=== PATIENT | female | born 1990 | race Caucasian/White ===

== ENCOUNTER 2022-10-14 16:05 | Outpatient (CLI) | payer OTHER, SELFPAY ==
--- NOTE | 2022-10-14 16:00 | CRLHL7_ITS ---
For Patients: As a result of the Cures Act, medical imaging exams and procedure reports are released immediately into your electronic medical record. You may view this report before your referring provider. If you have questions, please contact your health care provider. INDICATION: Dating and viability. LMP 08/20/2022. COMPARISON: None. TECHNIQUE: Real-time colmenares-scale imaging of the pelvis was performed. FINDINGS: Sonographic imaging demonstrates a single living intrauterine gestation. The embryo has a regular cardiac rate measuring 174 beats per minute. The embryo`s crown-rump length measurement of 1.4 cm corresponds to a gestational age of 7 weeks 5 days with a sonographic due date of 05/28/2023. There is a normal-appearing yolk sac. The placenta has not yet developed. There is a 1.6 x 0.7 x 1.2 cm subchorionic hemorrhage along the superior aspect of the gestational sac. The cervix appears closed. The right ovary measures 2.5 x 1.8 x 2.0 cm and the left ovary measures 1.7 x 1.4 x 1.3 cm. There is a 2.1 cm corpus luteum in the right ovary. Trace free fluid in the cul-de-sac. IMPRESSION: 1. Single living intrauterine gestation with crown rump length 1.4 cm which corresponds to a gestational age of 7 weeks 5 days with a sonographic due date of 05/28/2023. 2. The clinical gestational age by LMP is 7 weeks 6 days. 3. Small subchorionic hemorrhage. Dictated by Hattie Knight MD @ 10/14/2022 10:17:20 PM (Electronically Signed)
== END 2022-10-14 16:06 | disposition home or self-care (01) ==
LOC: US 16:07
PROVIDERS: PCP Obstetrics & Gynecology; Visit Provider Physician Assistant
DX: Z34.91 Encounter for supervision of normal pregnancy, unspecified, first trimester (principal); O20.9 Hemorrhage in early pregnancy, unspecified; Z3A.01 Less than 8 weeks gestation of pregnancy
CPT/HCPCS: 76817

== ENCOUNTER 2022-10-14 16:59 | Outpatient (CLI) | payer OTHER, SELFPAY ==
[2022-10-14 21:35] LABS: Hepatitis B Surface Antigen* Negative (Negative)
[2022-10-14 21:41] LABS: HIV 1/2/P24 Combo Screen* Negative (Negative)
[2022-10-14 22:09] LABS: Hepatitis C Virus Antibody* Negative (Negative)
[2022-10-14 22:32] LABS: Chlamydia DNA Amplified* NOT DETECTED (No Detected); GC DNA Amplified* NOT DETECTED (No Detected)
[2022-10-17 02:47] LABS: Rapid Plasma Reagin (RPR) Non Reactive (Non Reactive)
[2022-10-17 06:41] LABS: Rubella Antibody IgG 28.6 IU/mL
== END 2022-10-14 17:00 | disposition home or self-care (01) ==
PROVIDERS: PCP Obstetrics & Gynecology; Visit Provider Physician Assistant
DX: Z34.91 Encounter for supervision of normal pregnancy, unspecified, first trimester (principal); O20.9 Hemorrhage in early pregnancy, unspecified; Z3A.01 Less than 8 weeks gestation of pregnancy
CPT/HCPCS: 86592; 86703; 86762; 86787; 86803; 86850; 86900; 86901; 87086; 87340; 87491; 87591

== ENCOUNTER 2022-11-18 17:07 | Outpatient (CLI) | payer OTHER, SELFPAY ==
--- NOTE | 2022-11-18 17:00 | CRLHL7_ITS ---
For Patients: As a result of the Century Cures Act, medical imaging exams and procedure reports are released immediately into your electronic medical record. You may view this report before your referring provider. If you have questions, please contact your health care provider. CLINICAL HISTORY: First trimester screening. TECHNIQUE: Real time colmenares scale imaging of the fetus was performed using a transabdominal approach. Comparison: 10/14/2022 FINDINGS: Sonographic imaging demonstrates a single living intrauterine gestation. The fetus demonstrates a regular cardiac rate measuring 159 beats per minute. The crown rump length measurement of 6.1 cm corresponds to a gestation of 12 weeks 4 days which is concordant with the earlier dating ultrasound. A nuchal translucency measurement of 1.14 mm was obtained for screening purposes. IMPRESSION: Nuchal translucency measurement obtained for first trimester screen. Dictated by Papi Sosa MD @ 11/19/2022 7:24:12 AM (Electronically Signed)
== END 2022-11-18 17:08 | disposition home or self-care (01) ==
PROVIDERS: PCP Obstetrics & Gynecology; Visit Provider Physician Assistant
DX: Z34.91 Encounter for supervision of normal pregnancy, unspecified, first trimester (principal); Z13.79 Encounter for other screening for genetic and chromosomal anomalies; Z3A.12 12 weeks gestation of pregnancy
CPT/HCPCS: 36415; 76801; 76813; 84163; 84702

== ENCOUNTER 2023-01-15 09:27 | Outpatient (CLI) | payer OTHER, SELFPAY ==
--- NOTE | 2023-01-15 11:15 | CRLHL7_ITS ---
For Patients: As a result of the Cures Act, medical imaging exams and procedure reports are released immediately into your electronic medical record. You may view this report before your referring provider. If you have questions, please contact your health care provider. INDICATION: Evaluate anatomy. COMPARISON: 11.18.22 TECHNIQUE: Real time colmenares scale imaging of the fetus was performed as well as color Doppler analysis of the umbilical vessels. FINDINGS: Sonographic imaging demonstrates a single living intrauterine gestation. Fetus demonstrates a regular cardiac rate of 145 beats per minute. Fetus has a breech position. The placenta lies posterior without evidence of placenta previa. The edge of the placenta is located 3.1 cm from the internal cervical os. Amniotic fluid volume appears normal. Single deepest vertical pocket: 3.4 cm. The cervix is closed and measures 3.2 cm in length. The composite ultrasound gestational age is calculated at 20 weeks 4 days with an estimated sonographic due date of 05/31/2023. The estimated weight is 367 grams which lies at the 21st %. The following biometric measurements were obtained: Biparietal diameter: 4.7 cm/20 weeks 0 days 12th% Head circumference: 18.0 cm/20 weeks 3 days 14th% Abdominal circumference: 15.6 cm/20 weeks 6 days 32nd% Femur length: 3.4 cm/20 weeks 4 days 22nd% The HC/AC ratio measures: 1.15 range (1.07-1.25) On anatomic survey, there is a normal appearance of the cerebral ventricles, cavum septi pellucidi, cisterna magna and cerebellum. The nose, lips, and facial profile appear normal. The cervical, thoracic and lumbar spine are well visualized and appear normal. There is a normal four-chamber heart view and the left and right ventricular outflow tracts appear normal. The diaphragm and stomach appear normal. The kidneys and bladder also appear normal. There is a normal three-vessel cord and cord insertion site. The four extremities appear normal. IMPRESSION: Normal OB ultrasound exam with concordance of clinical and sonographic dating. No intrinsic abnormalities noted on anatomic survey. Dictated by Papi Sosa MD @ 01/16/2023 10:58:46 AM (Electronically Signed)
== END 2023-01-15 09:28 | disposition home or self-care (01) ==
PROVIDERS: Visit Provider Physician Assistant
DX: Z34.92 Encounter for supervision of normal pregnancy, unspecified, second trimester (principal); Z3A.21 21 weeks gestation of pregnancy
CPT/HCPCS: 76805

== ENCOUNTER 2023-03-03 16:45 | Outpatient (CLI) | payer OTHER, SELFPAY | END 2023-03-03 16:46 | disposition home or self-care (01) | LOC: NFLDREF 03-08 11:44 | PROVIDERS: PCP Obstetrics & Gynecology; Referring Provider Obstetrics & Gynecology; Visit Provider Physician Assistant | DX: Z34.92 Encounter for supervision of normal pregnancy, unspecified, second trimester (principal) | CPT/HCPCS: 86592 ==

== ENCOUNTER 2023-04-27 13:15 | Outpatient (CLI) | payer OTHER, SELFPAY | END 2023-04-27 13:16 | disposition home or self-care (01) | LOC: NFLDREF 04-28 16:11 | PROVIDERS: PCP Obstetrics & Gynecology; Referring Provider Obstetrics & Gynecology; Visit Provider Obstetrics & Gynecology | DX: Z34.93 Encounter for supervision of normal pregnancy, unspecified, third trimester (principal); Z3A.35 35 weeks gestation of pregnancy | CPT/HCPCS: 87081; 87653 ==

== ENCOUNTER 2023-05-20 07:03 | Inpatient (IN) | payer OTHER, SELFPAY ==
[2023-05-20] VITALS (44 sets, daily range): BP systolic 92–127; BP diastolic 51–78; PULSE 65–93; RESP 16; TEMP 36.4–36.9; O2SAT 92–100; BMI 23.6
--- NOTE | 2023-05-20 08:01 | P.LDBA_ITS ---
Subjective History of Present Illness Time Seen by Provider: 08:30 Date Seen: 05/20/23 Narrative: HPI: Colleen is a 32-year-old 3 para 2001 at 39 and 0/7weeks gestation being admitted for elective induction of labor. Her admission history and physical was completed by Thania Roger MD on 05/08/2023. Her course has been uncomplicated. Her membranes are not ruptured. She reports no painful contractions. The baby has been moving normally. Verbal consent obtained to perform artificial rupture of membranes. Pitocin is currently at 1 milliunit/minute. OB PROBLEM LIST: Spouse: Lennox. Daughter: Jaron. Son: Eddie. Baby: Aubrey Gender 1. History of IUGR and oligohydramnios in 1st * Planning USN for EFW 32-36 weeks (order placed 03/03/23) * 04/07/2023: Vertex, normal fluid. BPD 53%, HC 42%, AC 76%, FL 8%. EFW 46%. 4#10oz. 2106 g. 2. History of anxiety * Declined restarting sertraline on 11/21/2022. 3. History of genital herpes * At 1st OB on Valtrex a 1000 mg daily 4. Elevated 1 hour GTT, 171 * 3 hour GTT:F 83, 1hr 155, 2hr 124, 3hr 105. All Normal Flu shot:10/14/22 COVID: Vaccinated Tdap: 03/18/23 OBJECTIVE: GENERAL: Pleasant, , well groomed woman in no acute distress. VITAL SIGNS: Per electronic medical record: They are normal. HEART: Regular rate and rhythm without gallop, rub or murmur. CHEST: Clear to auscultation bilaterally. ABDOMEN: Gravid, nontender. EFM: Baseline 140s, accelerations present, decelerations absent, moderate variability, reactive. Category 1 TOCO: Sporadic contractions. SVE: 3 cm/80 %/0/posterior/soft. Dumont score 9. A ROM: Clear fluid EXTREMITIES: No edema, cyanosis, clubbing or pain. ASSESSMENT: 32-year-old 3 para 2001 at 39 and 0/7 weeks gestation admitted for elective induction of labor. PLAN: 1. Pitocin per induction protocol 2. AROM performed. 3. GBS negative 4. Planning epidural for labor analgesia 5. Rh positive OB Exam Physical Exam Vital signs: Pulse BP Pulse Ox 79 107/69 100 05/20/23 07:26 05/20/23 07:26 05/20/23 07:23
[2023-05-20] MEDS: LACTATED RINGERS 1000 ML 1,000 ML 125 ML IV ×3 (08:09→19:35)
[2023-05-20] MEDS: OXYTOCIN 30 unit/500 ML in NS 30 UNIT/500 ML BAG IVPB (08:12)
--- NOTE | 2023-05-20 16:35 | P.OBPN_ITS ---
Subjective Time Seen by Provider: 16:00 Date Seen: 05/20/23 Narrative: HPI: Patient is feeling mildly crampy but has not noticed many painful contractions. Pitocin: 5 milliunits/minute. Verbal consent obtained to place intrauterine pressure catheter. Objective Exam: General: Pleasant, gravid, comfortable woman in no acute distress. Vital signs: Included on the monitor tracing. All vital signs are no rmal. External monitor: Baseline: 130s, moderate variability, accelerations: Present, decelerations: 1 variable deceleration to the 90s lasting 20 seconds at 16:28. Category 2. IUPC: Placed w/o difficulty. Multiple heart rate accelerations to the 150's with placement of the IUPC. Each contraction is <20 Montrose units. 60 Montrose units/10minutes. SVE: 4/90%/0 to +1/mid/soft. Extremities: no pain or edema. Vital Signs: Last Vital Signs Temp 98.4 F 05/20/23 15:27 Pulse 88 05/20/23 15:27 Resp 16 05/20/23 15:27 BP 111/57 L 05/20/23 15:27 Pulse Ox 100 05/20/23 07:23 Contractions Monitor mode: Internal Contraction pattern: Irregular Contraction intensity: Mild Pitocin Rate (mU/min): 6 Assessment Assessment: early labor Station: 0 Amniotic Membrane Status: AROM Status: Category ll Heart Rate Baseline: 130 Group Home Variability: Moderate (6-25) Monitor Accelerations: Present Monitor Decelerations: Early Tracing Comments: 1 variable deceleration, 2 early decelerations between 4-4:30pm. Labor Progress: Slow progress: prodromal labor. Maternal Status: Stable Plan Plan: 1. Continue pitocin per induction protocol. 2. The patient would like to have an epidural for labor analgesia..
[2023-05-20] MEDS: LACTATED RINGERS 1000 ML 1,000 ML 1125 ML IV (18:29)
[2023-05-20] MEDS: ROPIVACAINE 0.2% 100 ml 100 ML 12 MG EPIDURAL (19:06)
--- NOTE | 2023-05-20 19:21 | PM.ANBPRC ---
[facility] Medical History (Updated 05/13/23 @ 10:47 by Thania Jose MD) Tear of acetabular labrum ?S73.199A - Other sprain of unspecified hip, initial encounter (ICD-10) Normal spontaneous vaginal delivery ?O80 - Encounter for full-term uncomplicated delivery (ICD-10) Genital herpes simplex ?A60.00 - Herpesviral infection of urogenital system, unspecified (ICD-10) Surgical History (Updated 10/14/22 @ 18:38 by Niecy Reynoso PA-C) History of wisdom tooth extraction ?K08.409 - Partial loss of teeth, unspecified cause, unspecified class (ICD-10) Family History (Updated 10/13/22 @ 13:58 by Niecy Reynoso PA-C) Grandmother Diabetes Social History (Updated 10/13/22 @ 13:58 by Niecy Reynoso PA-C) 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 What is your current living situation?: I presently have a place to live Problems where you live: no known problems In the past 12 months, utilities in danger of being shut off: no In the past 12 mos, have been you worried that your food would run out before you had money to buy more?: never true In the past 12 mos, the food you bought just didn't last and you didn't have money to buy more?: never true Smoking Status: Never smoker How often does anyone, including family, friends and others, physically hurt you: never How often does anyone, including family, friends and others, insult or talk down to you: never How often does anyone, including family, friends and others, threaten you with harm: never How often does anyone, including family, friends and others, scream or curse at you: never Little interest or pleasure in doing things: not at all Feeling down, depressed, or hopeless: not at all Meds Home Medications and Allergies Home Medications Medication Instructions Recorded Confirmed Type docosahexaenoic acid 200 mg 1 mg PO DAILY 10/14/22 05/20/23 History capsule ( DHA) famotidine 20 mg tablet (Pepcid) 20 mg PO QDAY 12/16/22 05/20/23 History Allergies Allergy/AdvReac Type Severity Reaction Status Date / Time banana Allergy Severe Abdominal Verified 05/13/23 10:42 Pain tree nut Allergy Mild Verified 05/13/23 10:42 adhesive tape Allergy Verified 05/13/23 10:42 avocado Allergy Verified 05/13/23 10:42 Results Vital Signs Vital Signs: Last Vital Signs Temp 98.1 F 05/20/23 18:23 Pulse 70 05/20/23 19:17 Resp 16 05/20/23 18:23 BP 118/63 05/20/23 19:17 Pulse Ox 92 05/20/23 19:01 Weight: 63.412 kg Height: 163.83 cm Anesthesia Procedures Epidural Insertion Patient Location: OB Start Time: 18:30 Stop Time: 19:25 Start Date: 05/20/23 Stop Date: 05/20/23 Reason for Block: procedure for pain Patient Position: sitting Performed By: Abel Vallecillo Preanesthetic Checklist: IV checked, risks and benefits discussed, surgical consent, monitors and equipment checked, pre-op evaluation, timeout performed and anesthesia consent Prep: chlorhexidine gluconate Monitoring: blood pressure monitoring, continuous pulse oximetry and heart rate Approach: midline Vertebral Space: lumbar (1-5) Epidural Technique: LAVON saline Needle Type: Tuohy needle Injection Technique: continuous catheter Needle gauge: 17 Needle Length (cm): 10 cm Needle Insertion Depth (cm): 6 Catheter Gauge: 19 Catheter Type: multi-orifice Catheter at skin depth (cm): 12 Test Dose Result: negative and lidocaine 1.5% with epinephrine 1 to 200,000
[2023-05-20] MEDS: TRANEXAMIC ACID 100 MG/ML INJ 1000 MG IV (22:33)
--- NOTE | 2023-05-20 23:20 | W.PM.VAGDEL1 ---
Procedure Delivery date: 05/20/23 Procedure Done: Global Procedure Details: Colleen is a 32 year-old G 3P 2002 now 3 admitted on 05/20/2023 at 7:00 a.m. at 39 Weeks, 0 Days gestation for an elective induction of labor. AROM occurred at 8:59 a.m. on 05/20/2023 with clear fluid. Labor Analgesia: Epidural Pitocin: Yes Labor onset: 05/20/2023 at 6:12 p.m.. Complete: 05/20/2023 at 10:25 p.m.. Pushin05/20/2023 at 10:33 p.m.. heart tones during second stage were: Category 2 with intermittent early or variable decelerations with contractions with immediate return to baseline and moderate variability.. At 10:58 p.m. a viable female infant delivered in vertex direct OA presentation over first-degree left periurethral laceration via normal spontaneous vaginal delivery. The was placed on maternal abdomen. Cord was clamped and cut after a 60 second delay. Nose and mouth were bulb suctioned. weight pending. 8 at 1 minute and 9 at 5 minutes. Shoulder dystocia: No. Nuchal cord: No Placenta delivered spontaneously and complete at 11:01 p.m. with a 3 vessel cord. Laceration(s): First-degree left periurethral. Repaired using 4-0 Vicryl suture in a running manner. Blood loss: 75 mL. Blood loss measurement type: Quantitative Sponge and needles counts are correct. Specimen: None Mother and infant were stable after delivery. Infant's name: ? Navy Padilla ? The patient is planning on breast feeding. The IUPC and gage catheter were removed when the patient began pushing. The patient received 1 g IV TXA during the 2nd stage to prevent hemorrhage as the patient had a maximum Pitocin of 22 milliunits/minute. Events: Labor Induction Intrapartal Events: Labor Induction Delivery monitor: external FHT and internal uterine Route of delivery: Episiotomy description: None Laceration description: Periurethral - 1st Degree Delivery repair: Vicryl Estimated blood loss (mL): 75 Anesthesia type: Epidural Disposition: floor Gender: Female presentation: vertex Placental Delivery Description: Spontaneous Cord Description: 3 Vessels
[2023-05-21] VITALS (13 sets, daily range): BP systolic 83–115; BP diastolic 48–72; PULSE 49–77; RESP 16; TEMP 36.4–36.6; O2SAT 97–98
[2023-05-21] MEDS: ONDANSETRON 2 MG/ML inj 4 MG IV (02:26)
[2023-05-21] MEDS: IBUPROFEN 600 MG TABLET PO ×3 (06:30→19:41)
[2023-05-21 07:08] LABS: Hemoglobin* 11.5 gm/dL (12.0-16.0)
--- NOTE | 2023-05-21 07:38 | PM.OBPNVD1 ---
OB - PN:Subj Subjective Time Seen by Provider: 07:38 Date Seen: 05/21/23 Interval history: Colleen is a 32 y.o. who was admitted to [facility] for elective [facility].? She had an uncomplicated NVD.? ? ? Narrative: The patient feels well.? The pain is well controlled with current medications.? She has no new complaints.? She is breast feeding and reports baby has not been latching well.? the patient has done well.? Vitals have been stable.? She has remained afebrile.? Has a good appetite, is tolerating a general diet.? She is voiding without difficulty.? She is passing gas and has not had a bowel movement.? She is ambulating and did have dizziness post delivery.? This has resolved and she denies any at this time. Has Small amount of rubra lochia.? OB - PN: Obj Exam Physical Exam: Vital signs: Temp Pulse Resp BP Pulse Ox O2 Del Method 98 F 67 16 90/56 L 92 Room Air 05/21/23 04:04 05/21/23 04:04 05/21/23 04:04 05/21/23 04:04 05/20/23 19:01 05/21/23 04:04 Narrative: GENERAL APPEARANCE:? normal affect, alert, no distress? MOOD:? appropriate? HEENT: normocephalic, neck supple, full ROM? CHEST:? Symmetrical chest wall movement.? Normal respiratory effort.? Clear to auscultation ? HEART:? regular rate and rhythm? ABDOMEN:? soft, non-tender. Uterine fundus is firm, at Umbilicus, Midline and is appropriate for the stage of recovery.? Bowel sounds present.? PERINEUM:? mild edema and bruising of the perineum, there is a 1st degree laceration that is healing well.? Labial varicosities also present. EXTREMITIES:? normal and no edema? OB - PN: Obj Data Labs Labs: Laboratory Results - last 24 hr 05/21/23 07:00 Hgb 11.5 L OB - PN: A/P Delivery Plan day: 1 Plan: routine care Comments: G 3 P 3 status post uncomplicated NVD? ?? 1.? Continue route PP cares? 2.? .? May see if desired? 3.? Anticipate discharge home tomorrow?
[2023-05-21] MEDS: ACETAMINOPHEN 500 MG TABLET 1000 MG PO (22:27)
[2023-05-22] MEDS: IBUPROFEN 600 MG TABLET PO (05:30)
[2023-05-22 06:00] VITALS: BP 103/69; PULSE 53; RESP 16; TEMP 36.3; O2SAT 98
--- NOTE | 2023-05-22 07:51 | P.DS_ITS ---
DS: Providers Provider Date Seen: 05/22/23 Date of admission: 05/20/23 07:03 Primary care physician: Thania Jose MD Admitting Clinician: Thania Jose MD Attending Physician on discharge: URIEL Mckinley: Diagnosis Discharge Diagnosis (1) care and examination immediately after delivery: Status: Acute (2) Lactating mother: Status: Acute Exam Narrative: Exam Narrative: GENERAL APPEARANCE:? normal affect, alert, no distress MOOD:? appropriate CHEST:? clear to auscultation HEART:? regular rate and rhythm ABDOMEN:? soft, non-tender the uterine fundus is at Umbilicus, Midline and is appropriate for the stage of recovery. PERINEUM:? mild edema of the perineum, there is a periurethral laceration that is healing well. EXTREMITIES:? normal and no edema Const: Vital Signs, click to edit/add: Vital Signs - 24 hr 05/21/23 08:14 05/21/23 12:41 05/21/23 17:58 Temperature 97.6 F 97.7 F 97.8 F Pulse Rate [Blood Pressure Cuff] 58 L 49 L 56 L Respiratory Rate 16 16 16 Blood Pressure [Ri ght Arm] 108/72 101/62 107/60 Pulse Oximetry 98 97 98 Oxygen Delivery Me thod Room Air Room Air 05/21/23 19:45 05/22/23 06:00 Temperature 97.8 F 97.4 F L Pulse Rate [Blood Pressure Cuff] 54 L 53 L Respiratory Rate 16 16 Blood Pressure [Ri ght Arm] 115/68 103/69 Pulse Oximetry 98 98 Oxygen Delivery Me thod Room Air Room Air Documenting provider has reviewed patient's vital signs: yes OB - DS: Summary Hospital Course Hospital Course: Colleen is a 32 year old G 3 P 3 at 39 0/7 weeks gestation that was admitted to the Center on 05/20/23 for elective induction of labor. She had an uncomplicated vaginal delivery. She delivered a viable female . The patient feels well. ?The pain is well controlled with current medications. ?She has no new complaints. ?She is breast feeding and reports things are going ok. She desires to see before discharge.? the patient has done well.? Vitals have been stable.? She has remained afebrile.? Has a good appetite, is tolerating a general diet. ?She is voiding without difficulty.? She is passing gas and has not had a bowel movement.? She is ambulating and denies any dizziness.? Has small amount of rubra lochia. Peripartum Data Infant delivery method: Vaginal Laceration description: Periurethral - 1st Degree complications: none [place] Infant Gender: Female Discharge Plan: Home Status at Discharge Functional status at discharge: independent ambulation Overall status at discharge: patient is progressing back to baseline Time Spent with Patient Time attestation: Total time spent providing and/or coordinating discharge services: Discharge Plan Discharge Disposition: Home, Self-Care Date of Admission: 05/20/23 07:03 Attending Provider on Discharge: Vivien Martinez Primary Care Provider: Thania Jose Condition: Stable Anticipated Discharge Date/Time: 05/22/23 12:00 Discharge Medications: New docusate sodium 100 mg Capsule 100 mg PO BID PRNQty: 100 0RF ibuprofen 600 mg Tablet 600 mg PO Q6H PRNQty: 30 0RF Continued DHA 200 mg capsule 1 mg PO DAILY famotidine [Pepcid] 20 mg tablet 20 mg PO QDAY valacyclovir 1 gram tablet 1,000 mg PO QDAY Qty: 90 1RF Rx Instructions: 1,000 mg orally every day; or 1 gram per day. Discharge Orders: Discharge Order (Routine); Ordered 05/22/23 Ordered By: Vivien Martinez Patient Education: OB Vaginal/Breast Feeding, OB Over the Counter Medication Information Additional Instructions: ACTIVITY RESTRICTIONS: * Nothing vaginally for 6 weeks: no tampons/intercourse * Off of work/school for a minimum of 6 weeks [facility]LLOW-UP APPOINTMENTS [facility]: 1. Optional 2 week visit: Screen for anxiety/depression, discuss contraceptive options, answer questions regarding care. 2. 6 week visit for physical exam. The patient also desires Mirena IUD insertion at this visit. consultation services are available to all mothers and babies for the first year after delivery.? To make an appointment, please call [phone]. Activity Level: Activity as Tolerated Discharge Diet: Regular Follow Up Appointments: [facility] [Provider Group] Thania Jose MD [Primary Care Provider] - Forms: [employer] Info Instructions
[2023-05-22 08:30] VITALS: BP 102/68; PULSE 53; RESP 16; TEMP 36.9
== END 2023-05-22 13:05 | disposition home or self-care (01) | DRG 807 ==
PROVIDERS: Admitting Provider Obstetrics & Gynecology; PCP Obstetrics & Gynecology; Visit Provider Obstetrics & Gynecology
DX: O70.0 First degree perineal laceration during delivery (principal); Z37.0 Single live birth; Z3A.39 39 weeks gestation of pregnancy
CPT/HCPCS: 01967; 36415; 85018; A9270; J2371; J2405; J2795; J7120; S0020

== ENCOUNTER 2023-05-31 19:24 | Emergency (ER) | payer OTHER, SELFPAY ==
[2023-05-31 19:33] VITALS: BP 119/87; PULSE 60; RESP 16; O2SAT 99; BMI 21.8
--- NOTE | 2023-05-31 19:48 | CRLHL7_ITS ---
For Patients: As a result of the Century Cures Act, medical imaging exams and procedure reports are released immediately into your electronic medical record. You may view this report before your referring provider. If you have questions, please contact your health care provider. INDICATION: Vaginal bleeding 11 days post TECHNIQUE: Ultrasound pelvis transabdominal. Real-time colmenares scale sonographic images with Doppler imaging of the ovaries were obtained. COMPARISON: None FINDINGS: Uterus: 10.6 x 7 x 9.3 cm. The uterine cavity is distended by heterogeneous hypoechoic material with a cavity measuring 2.8 cm in diameter. Normal echotexture of the myometrium noted with no masses are seen. Endometrium: Not well visualized. Right ovary: 3 x 2.7 x 1.6 cm. The right ovary is normal in appearance and echotexture. Unremarkable color Doppler imaging noted in the right ovary. Left ovary: 4 x 2.5 x 1.5 cm. The left ovary is normal in appearance and echotexture. Doppler examination of the left ovary is limited. Cul-de-sac: No significant ascites noted. IMPRESSION: 1. The uterine cavity is distended by heterogeneous hypoechoic material with a cavity measuring 2.8 cm in diameter. This may be due to blood products. Follow-up imaging is recommended to document resolution and to exclude retained products of conception. Dictated by Dany Burch MD @ 05/31/2023 10:48:57 PM Dictated by: Dany Burch MD @ 05/31/2023 22:49:01 (Electronically Signed)
[2023-05-31 19:50] VITALS: BP 113/75; PULSE 57; RESP 16; O2SAT 97
[2023-05-31] MEDS: 0.9 % SODIUM CHLORIDE 1000 ml 1,000 ML IV (19:53)
[2023-05-31 20:00] LABS: Basophils Absolute Auto 0.02 K/uL (0.00-0.30); Basophils Percent Auto 0.2 % (0.0-3.0); Eosinophils Absolute Auto 0.11 K/uL (0.00-0.50); Eosinophils Percent Auto 1.3 % (0.0-7.0); Hemoglobin* 14.4 gm/dL (12.0-16.0); Immature Granulocytes Abs Auto 0.01 K/uL (0.00-0.30); Immature Granulocytes Pct Auto 0.1 %; Lymphocytes Absolute Auto 2.91 K/uL (0.90-2.90); Lymphocytes Percent Auto 34.4 % (20-44); Mean Corpuscular HGB Conc 34 gm/dL (32-36); Mean Corpuscular Hemoglobin 31 pg (26-34); Mean Corpuscular Volume 94 fL (80-100); Monocytes Percent Auto 6.5 % (0.0-11.0); Neutrophils Absolute Auto 4.86 K/uL (1.7-7.0); Neutrophils Percent Auto 57.5 % (42.0-72.0); Platelet Count* 321 K/uL (140-440); RDW Coefficient of Variation % 12.1 % (11.5-15.5); Red Blood Count 4.58 m/uL (4.00-5.20); White Blood Count* 8.46 K/uL (4.50-11.00)
[2023-05-31 20:02] LABS: Slide Review Reflex No
--- NOTE | 2023-05-31 20:14 | ED_ITS ---
HPI - General Adult General Date Seen: 05/31/23 <Timbo Victor MD - Last Filed: 06/02/23 09:22> Chief complaint: Post OB/Post- Complication <Timbo Victor MD - Last Filed: 06/02/23 09:22> Stated complaint: 11 days , passing clots and bleeding <Timbo Victor MD - Last Filed: 06/02/23 09:22> Time Seen by Provider: 05/31/23 19:26 <Timbo Victor MD - Last Filed: 06/02/23 09:22> Source: patient <Timbo Victor MD - Last Filed: 06/02/23 09:22> Mode of arrival: ambulatory <Timbo Victor MD - Last Filed: 06/02/23 09:22> Limitations: no limitations <Timbo Victor MD - Last Filed: 06/02/23 09:22> History of Present Illness HPI narrative: Patient is a very nice 32-year-old we delivered a vaginal delivery on May 20. She was doing well with normal , when noted increased bleeding today, and was having which she thinks is more is old blood, and soaking through 4 pads. Pretty well stop bleeding altogether, when this occurred. She told her mother was 1 over obese here that she was feeling a little bit on well in her mother worried about endometritis or possible retained products, they called the on-call OBGYN, and she came in here. Does not feel syncopal, dizzy or any other issues she did not have any bleeding retained products with any of her previous children, she does note her Rh status is but she did not receive RhoGAM. She notes that there is no history of nose bleeds or other bleeding dyscrasias, she has never been anemic, and she only required 1 stitches far she knows. <Timbo Victor MD - Last Filed: 06/02/23 09:22> Treatments prior to arrival: none <Timbo Victor MD - Last Filed: 06/02/23 09:22> Related Data Home medications: Home Medications Medication Instructions Recorded Confirmed docosahexaenoic acid 200 mg 1 mg PO DAILY 10/14/22 05/20/23 capsule ( DHA) famotidine 20 mg tablet (Pepcid) 20 mg PO QDAY 12/16/22 05/20/23 Previous Rx's Medication Instructions Recorded valacyclovir 1 gram tablet 1,000 mg PO QDAY #90 tabs 01/05/23 docusate sodium 100 mg capsule 100 mg PO BID PRN #100 caps 05/20/23 ibuprofen 600 mg tablet 600 mg PO Q6H PRN #30 tabs 05/20/23 <Timbo Victor MD - Last Filed: 06/02/23 09:22> Allergies/adverse reactions: Allergies Allergy/AdvReac Type Severity Reaction Status Date / Time banana Allergy Severe Abdominal Verified 06/01/23 08:08 Pain tree nut Allergy Mild Verified 06/01/23 08:08 adhesive tape Allergy Verified 06/01/23 08:08 avocado Allergy Verified 06/01/23 08:08 <Timbo Victor MD - Last Filed: 06/02/23 09:22> Review of Systems Status of ROS: Reports: 10 or more systems reviewed and unremarkable except as noted in History and below <Timbo Victor MD - Last Filed: 06/02/23 09:22> [facility] Medical History: Medical History Normal spontaneous vaginal delivery (05/20/23) ?O80 - Encounter for full-term uncomplicated delivery (ICD-10) Tear of acetabular labrum ?S73.199A - Other sprain of unspecified hip, initial encounter (ICD-10) Genital herpes simplex ?A60.00 - Herpesviral infection of urogenital system, unspecified (ICD-10) <Timbo Victor MD - Last Filed: 06/02/23 09:22> Surgical History: Surgical History History of wisdom tooth extraction ?K08.409 - Partial loss of teeth, unspecified cause, unspecified class (ICD- 10) <Timbo Victor MD - Last Filed: 06/02/23 09:22> Family History: Family History Grandmother Diabetes <Timbo Victor MD - Last Filed: 06/02/23 09:22> Social History: 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 What is your current living situation?: I presently have a place to live Problems where you live: no known problems In the past 12 months, utilities in danger of being shut off: no In the past 12 mos, have been you worried that your food would run out before you had money to buy more?: never true In the past 12 mos, the food you bought just didn't last and you didn't have money to buy more?: never true Smoking Status: Never smoker How often do you have a drink containing alcohol: never AUDIT-C Alcohol total score: 0 Non-prescribed substance use: denies use Caffeine: No How often does anyone, including family, friends and others, physically hurt you : never How often does anyone, including family, friends and others, insult or talk down to you: never How often does anyone, including family, friends and others, threaten you with harm: never How often does anyone, including family, friends and others, scream or curse at you: never Little interest or pleasure in doing things: not at all Feeling down, depressed, or hopeless: not at all Are you using contraception or practicing any form of control: No <Timbo Victor MD - Last Filed: 06/02/23 09:22> Exam Narrative: Exam Narrative: Patient is a very nice 32-year-old female, seen in room 7, she is here with her partner in her young baby. Pupils are equal round reactive to light, there is no scleral icterus redness, TMs are normal chest is clear heart sounds are normal, her abdomen is soft her uterus is approximately 3 finger widths above her symphysis, and is not tender, and is not feel boggy, the rest of her abdomen is soft. Skin real petechiae rashes. I discussed with her we will order an ultrasound, I will do an examination to see the bleeding, and we will do a hemoglobin and blood screen, will give her some fluids, and I will discuss this with the OBGYN on-call. I did discuss this with Dr. Casas, she asked to keep person updated on the ultrasound. Bimanual exam is done with the speculum, with nurse alley present. Cervix was seen posterior, old blood, not a lot was seen in the vault. Approximately maybe 5 mL, this is cleaned off with 1 large Q-tip, no lacerations are noted <Timbo Victor MD - Last Filed: 06/02/23 09:22> Const: Vital Signs, click to edit/add: Vital Signs - 24 hr 05/31/23 19:33 05/31/23 19:50 05/31/23 21:51 Pulse Rate [Left P ulse Oximeter] 60 57 L 58 L Respiratory Rate 16 16 20 Blood Pressure [Ri ght Upper Arm] 119/87 113/75 109/71 Pulse Oximetry 99 97 95 Oxygen Delivery Me thod Room Air Room Air Room Air <Timbo Victor MD - Last Filed: 06/02/23 09:22> Vital Signs, click to edit/add: Vital Signs - 24 hr 05/31/23 19:33 05/31/23 19:50 05/31/23 21:51 Pulse Rate [Left P ulse Oximeter] 60 57 L 58 L Respiratory Rate 16 16 20 Blood Pressure [Ri ght Upper Arm] 119/87 113/75 109/71 Pulse Oximetry 99 97 95 Oxygen Delivery Me thod Room Air Room Air Room Air <Prabhjot Graff MD - Last Filed: 05/31/23 23:38> Documenting provider has reviewed patient's vital signs: yes <Timbo Victor MD - Last Filed: 06/02/23 09:22> Course Vital Signs Vital signs: Initial Vital Signs Temperature Source Temporal Artery Scan 05/31/23 19:33 Pulse Rate 60 05/31/23 19:33 Respiratory Rate 16 05/31/23 19:33 Blood Pressure 119/87 05/31/23 19:33 Blood Pressure Mean 97 05/31/23 19:33 Blood Pressure Position Sitting 05/31/23 19:33 Pulse Oximetry 99 05/31/23 19:33 Oxygen Delivery Method Room Air 05/31/23 19:33 Vital Signs Pulse Rate 60 05/31/23 19:33 Respiratory Rate 16 05/31/23 19:33 Blood Pressure 119/87 05/31/23 19:33 Pulse Oximetry 99 05/31/23 19:33 Oxygen Delivery Method Room Air 05/31/23 19:33 Temperature 98.2 F 05/31/23 23:49 Pulse Rate 65 05/31/23 23:49 Respiratory Rate 20 05/31/23 23:49 Blood Pressure 112/74 05/31/23 23:49 Pulse Oximetry 95 05/31/23 23:49 Oxygen Delivery Method Room Air 05/31/23 23:49 <Timbo Victor MD - Last Filed: 06/02/23 09:22> Initial Vital Signs Temperature Source Temporal Artery Scan 05/31/23 19:33 Pulse Rate 60 05/31/23 19:33 Respiratory Rate 16 05/31/23 19:33 Blood Pressure 119/87 05/31/23 19:33 Blood Pressure Mean 97 05/31/23 19:33 Blood Pressure Position Sitting 05/31/23 19:33 Pulse Oximetry 99 05/31/23 19:33 Oxygen Delivery Method Room Air 05/31/23 19:33 Vital Signs Pulse Rate 60 05/31/23 19:33 Respiratory Rate 16 05/31/23 19:33 Blood Pressure 119/87 05/31/23 19:33 Pulse Oximetry 99 05/31/23 19:33 Oxygen Delivery Method Room Air 05/31/23 19:33 Temperature 98.2 F 05/31/23 23:49 Pulse Rate 65 05/31/23 23:49 Respiratory Rate 20 05/31/23 23:49 Blood Pressure 112/74 05/31/23 23:49 Pulse Oximetry 95 05/31/23 23:49 Oxygen Delivery Method Room Air 05/31/23 23:49 <Prabhjot Graff MD - Last Filed: 05/31/23 23:38> Medical Decision Making MDM Narrative Medical decision making narrative: Differential diagnosis here consider retained products, bleeding fibroid, infection, such as endometritis, inherent bleeding disorder, trauma, or other possible causes <Timbo Victor MD - Last Filed: 06/02/23 09:22> Differential diagnosis here consider retained products, bleeding fibroid, infection, such as endometritis, inherent bleeding disorder, trauma, or other possible causes This patient seemed to have improvement in her bleeding but ultrasound results do show evidence of a 2.8 cm heterogeneous hypoechoic fluid in the uterus probably related to a blood clot but possibly could be some products of conception. I did speak with the OB physician conservation scientist to update regarding these findings on ultrasound. The patient will likely need a D&C sometime this week. The patient states that she lives an hour and half away and was hoping to attend to these matters without having to return home. Her mother is 1 of the OB physicians so she plans to stay with her tonight and will return in the morning as arrangements are made for D&C at 9:00 a.m. in the morning. <Prabhjot Graff MD - Last Filed: 05/31/23 23:38> Lab Data Labs: Lab Results 05/31/23 Range/Units 19:50 WBC 8.46 (4.50-11.00) K/uL RBC 4.58 (4.00-5.20) m/uL Hgb 14.4 (12.0-16.0) gm/dL Hct 43.0 (33.0-51.0) % MCV 94 (80-100) fL MCH 31 (26-34) pg MCHC 34 (32-36) gm/dL RDW Coeff of Brooke 12.1 (11.5-15.5) % Plt Count 321 (140-440) K/uL Neut % (Auto) 57.5 (42.0-72.0) % Lymph % (Auto) 34.4 (20-44) % Grand % (Auto) 6.5 (0.0-11.0) % Eos % (Auto) 1.3 (0.0-7.0) % Baso % (Auto) 0.2 (0.0-3.0) % Neut # (Auto) 4.86 (1.7-7.0) K/uL Lymph # (Auto) 2.91 H (0.90-2.90) K/uL Grand # (Auto) 0.50 (0.00-0.90) K/UL Eos # (Auto) 0.11 (0.00-0.50) K/uL Baso # (Auto) 0.02 (0.00-0.30) K/uL Abs Immat Gran (auto) 0.01 (0.00-0.30) K/uL Imm/Tot Granulo (auto) 0.1 % INR 0.84 L (0.91-1.10) APTT 27 (23-33) Seconds Blood Type A Positive Antibody Screen NEGATIVE <Timbo Victor MD - Last Filed: 06/02/23 09:22> Lab Results 05/31/23 Range/Units 19:50 WBC 8.46 (4.50-11.00) K/uL RBC 4.58 (4.00-5.20) m/uL Hgb 14.4 (12.0-16.0) gm/dL Hct 43.0 (33.0-51.0) % MCV 94 (80-100) fL MCH 31 (26-34) pg MCHC 34 (32-36) gm/dL RDW Coeff of Brooke 12.1 (11.5-15.5) % Plt Count 321 (140-440) K/uL Neut % (Auto) 57.5 (42.0-72.0) % Lymph % (Auto) 34.4 (20-44) % Grand % (Auto) 6.5 (0.0-11.0) % Eos % (Auto) 1.3 (0.0-7.0) % Baso % (Auto) 0.2 (0.0-3.0) % Neut # (Auto) 4.86 (1.7-7.0) K/uL Lymph # (Auto) 2.91 H (0.90-2.90) K/uL Grand # (Auto) 0.50 (0.00-0.90) K/UL Eos # (Auto) 0.11 (0.00-0.50) K/uL Baso # (Auto) 0.02 (0.00-0.30) K/uL Abs Immat Gran (auto) 0.01 (0.00-0.30) K/uL Imm/Tot Granulo (auto) 0.1 % INR 0.84 L (0.91-1.10) APTT 27 (23-33) Seconds Blood Type A Positive Antibody Screen NEGATIVE <Prabhjot Graff MD - Last Filed: 05/31/23 23:38> Discharge Plan Discharge Clinical Impression: bleeding <Timbo Victor MD - Last Filed: 06/02/23 09:22> Patient Disposition: Home w/ Parent or Adult <Timbo Victor MD - Last Filed: 06/02/23 09:22> Condition: Stable <Timbo Victor MD - Last Filed: 06/02/23 09:22> Additional Instructions: Return in the morning as instructed for same-day surgery. Nothing by mouth after midnight. Return if worsening. nothing to eat or drink after midnight Plan to return at 0745 to [facility] center. Expect a call around 0700 to verify plans. <Timbo Victor MD - Last Filed: 06/02/23 09:22> Prescriptions: No Action DHA 200 mg capsule 1 mg PO DAILY famotidine [Pepcid] 20 mg tablet 20 mg PO QDAY docusate sodium 100 mg Capsule 100 mg PO BID PRNQty: 100 0RF ibuprofen 600 mg Tablet 600 mg PO Q6H PRNQty: 30 0RF valacyclovir 1 gram tablet 1,000 mg PO QDAY Qty: 90 1RF Rx Instructions: 1,000 mg orally every day; or 1 gram per day. <Timbo Victor MD - Last Filed: 06/02/23 09:22> Follow Up/Referrals: Thania Jose MD [Primary Care Provider] - <Timbo Victor MD - Last Filed: 06/02/23 09:22> Stand Alone Forms: MyHealth Info Instructions <Timbo Victor MD - Last Filed: 06/02/23 09:22>
[2023-05-31 20:19] LABS: INR 0.84 (0.91-1.10); Prothrombin Time 12.1 Seconds
[2023-05-31 20:20] LABS: Partial Thromboplastin Time* 27 Seconds (23-33)
[2023-05-31 21:51] VITALS: BP 109/71; PULSE 58; RESP 20; O2SAT 95
[2023-05-31 23:49] VITALS: BP 112/74; PULSE 65; RESP 20; TEMP 36.8; O2SAT 95
== END 2023-05-31 23:52 | disposition home or self-care (01) ==
PROVIDERS: Emergency Provider Family Medicine; PCP Obstetrics & Gynecology
DX: O72.2 Delayed and secondary postpartum hemorrhage (principal)
CPT/HCPCS: 36415; 76856; 85025; 85610; 85730; 86850; 86900; 86901; 96360; 99284; J7030

== ENCOUNTER 2023-06-02 09:59 | Inpatient (IN) | payer OTHER, SELFPAY ==
[2023-06-01] VITALS (28 sets, daily range): BP systolic 91–133; BP diastolic 52–93; PULSE 62–99; RESP 16–18; TEMP 36.6–38; O2SAT 95–99; BMI 21.8
[2023-06-01] MEDS: LACTATED RINGERS 1000 ML 1,000 ML 100 ML IV ×2 (08:40→12:27)
[2023-06-01] MEDS: SODIUM CHLORIDE 0.9 % (FLUSH) 10 ML SYRINGE IVF (08:44)
[2023-06-01] MEDS: DOXYCYCLINE HYCLATE 200 MG in 0.9 % SODIUM CHLORIDE Mini-bag 100 ML 100 MG IVPB (08:54)
--- NOTE | 2023-06-01 09:56 | W.ANESCHARGE ---
Anesthesia Charges Start Date/Time Anesthesia Start Date: 06/01/23 Anesthesia Start Time: 09:31 Stop Date/Time Anesthesia Stop Date: 06/01/23 Anesthesia Stop Time: 10:46
[2023-06-01] MEDS: miSOPROStoL 800 MCG/4 TABLET PR (10:31)
--- NOTE | 2023-06-01 10:55 | W.PM.GYNPROC ---
Procedure Note Time Seen by Provider: 10:55 Date of procedure: 06/01/23 Procedure: DILATION AND CURETTAGE PREOPERATIVE DIAGNOSIS: 1. Possible retained products of conception POSTOPERATIVE DIAGNOSIS: 1. Retained products of conception PROCEDURE: 1. EUA 2. Ultrasound guided suction dilation and curettage SURGEON: Maci Crum MD FINAL ARMATURE TESTER: None ANESTHESIA: Monitored anesthesia care, local FINDINGS: 1. A 8 weeks size mobile, midline, no adnexal masses on EUA 2. Normal external genitalia - periurethral lacerations healing well. Suture knots on right and left labia still present 3. Cervix dilated to 1-2 cm with large clot passing through. 4. Fundus boggy 4 cm below umbilicus. Fundal massage expressed copious amount of clots. FLUIDS: 1000 cc ESTIMATED BLOOD LOSS: 400 cc URINE OUTPUT: 50 cc COMPLICATIONS: None PREOP ANTIBIOTIC: 200 mg of Doxycycline SPECIMEN: 1. Retained products of conception INDICATIONS: 32yo who is PPD#12 s/p uncomplicated vaginal delivery on 05/20/2023 presenting with abnormal uterine bleeding concerning for retained placenta. Colleen reports sudden onset of increased in vaginal bleeding in the form of large clots last night. She reports that this type of bleeding is very different from her usual lochia so she presented to the ED. TVUS obtained showed the uterine cavity is distended by heterogenous hypoechoic material with a cavity measuring 2.8 cm. This is may be due to blood products. Patient was counseled by Dr. Clary Michaels on expectant management vs dilation and curettage. Patient opted for the latter option and consent was signed. DESCRIPTION OF PROCEDURE: The patient was taken to the operating room where monitored anesthesia care was administered. She was prepared and draped in normal sterile fashion in the dorsal lithotomy position in yellow fin/candy cane stirrups, taking care to avoid lower extremity hyperextension, hyperflexion or compression. A surgical time-out was performed with the entire operative staff per protocol. Perioperative antibiotic was given. EUA revealed the above findings. Bladder was drained with a red rubber. A speculum was placed in the patient's vagina and a long Allis clamp was placed on the anterior lip of the cervix. The cervix did not need dilation to accommodate the 8 tongan suction curettage. The suction curettage was then inserted under direct visualization. The uterus was then gently suction curetted and rotated to clear the uterus of products of conception. Due to copious amount of clots and tissue on return, decision was made to do ultrasound guided D&C. On ultrasound, vascular flow noted at the posterior fundal uterus. The rest of the suction D&C was performed under ultrasound guidance. This was performed until a gritty texture was noted and the uterus was cleared of all remaining products of conception. Colleen was given 0.2 mg of Methergine IM due to boggy uterine tone and increased bleeding. There was minimal bleeding noted after the suction curettage was removed. The long Allis was removed from the anterior lip of the cervix and excellent hemostasis was noted. All instruments were removed. Specimen was sent to pathology. She received 800 mcg of misoprostol rectal a the end of the procedure. The patient tolerated the procedure well. Sponge, lap and needle counts were correct x 2. The patient was taken to the recovery room in stable condition.
--- NOTE | 2023-06-01 10:55 | W.ANESCHARGE ---
Anesthesia Charges Start Date/Time Anesthesia Start Date: 06/01/23 Anesthesia Start Time: 09:31 Stop Date/Time Anesthesia Stop Date: 06/01/23 Anesthesia Stop Time: 10:46
[2023-06-01] MEDS: MEPERIDINE 25 MG/ML INJ 12.5 MG IVP (11:08)
[2023-06-01] MEDS: CARBOPROST TROMETHAMINE 250 MCG/ML INJ IM ×2 (12:12→12:57)
[2023-06-01] MEDS: TRANEXAMIC ACID 1,000 MG in 0.9 % SODIUM CHLORIDE 100 ml 100 ML 440 MG IVPB (12:20)
--- NOTE | 2023-06-01 12:43 | P.GYNPN_ITS ---
RECREATION PROGRAM COORDINATOR - A/P Assessment and plan (1) Delayed hemorrhage: Status: Acute Assessment and Plan: - Delayed hemorrhage 2/2 retained placenta - s/p ultrasound guided D&C - Uterotonics given: 0.2 mg of Methergine x1, 0.25 mg of Hemabate x2, 100 mcg of misoprostol, and 1 g of TXA - Total EBL (OR and PACU): 600 cc - VSS - Preop Hgb/plt: 14.4/321 - Postop Hgb/plt: 13.2/291 - Coag: normal except for low fibrinogen - Will transfuse 1u of cryoprecipitate stat - Repeat labs at 1600 - Plan: Will admit to L&D Postoperative Procedures: Procedures Operation Date: 06/01/23 09:10 Actual Procedure Side Surgeon p Suction Dilatation & Curettage Maci Crum MD Time Spent With Patient Time: Total time spent is greater than 50% in coordination of care (as documented) at patient's floor/unit and/or counseling patient: Time with patient: 25 - 35 minutes RECREATION PROGRAM COORDINATOR- PN:Subj Post-Op Subjective Time Seen by Provider: 12:43 Date Seen: 06/01/23 Post Operative Details: Post-operative day number 0: status post dilation and curettage due to retained products of conception Notified by RN that patient had large gush of blood while sitting up to breastfeed her infant. Hemabate 0.25 mg and 1g of TXA ordered to be given. Upon arrival, no continued active vaginal bleeding noted. But approximately 200 cc of blood on pad. I performed bimanual massage of the uterus with good tonal response. Minimal blood expressed after medication administrations and bimanual massage. 1L bolus of NS given and stat CBC and coags were ordered. Colleen endorsed dizziness and some nausea during lab draw. Improved with cold wash cloth on her forehead. Patient received a second dose of Hemabate 0.25 mg 30 minutes after initial dose. RECREATION PROGRAM COORDINATOR-PN: Obj Exam Physical Exam: Vital signs: Temp Pulse Resp BP Pulse Ox O2 Del Method 97.8 F 71 16 119/88 99 Room Air 06/01/23 10:45 06/01/23 12:30 06/01/23 12:30 06/01/23 12:15 06/01/23 12:30 06/01/23 12:30 Narrative: Physical exam: General: Patient is tearful but consolable Psych: Alert and oriented x3, full affect HEENT: Normocephalic, atraumatic Lungs: Unlabored breathing Neuro: No focal deficit. Mentating appropriately Abdomen: Soft. Nontender. Nondistended. No rebound or guarding. Pelvic exam: Cervical os closed-0.1 cm. No fundal tenderness. Uterus was initially boggy but firmed after bimanual massage and uterotonic.
[2023-06-01 12:44] LABS: Basophils Absolute Auto 0.02 K/uL (0.00-0.30); Basophils Percent Auto 0.2 % (0.0-3.0); Eosinophils Absolute Auto 0.01 K/uL (0.00-0.50); Eosinophils Percent Auto 0.1 % (0.0-7.0); Hematocrit 39.5 % (33.0-51.0); Hemoglobin* 13.2 gm/dL (12.0-16.0); Lymphocytes Percent Auto 10.2 % (20-44); Mean Corpuscular HGB Conc 33 gm/dL (32-36); Mean Corpuscular Hemoglobin 32 pg (26-34); Mean Corpuscular Volume 94 fL (80-100); Neutrophils Percent Auto 88.5 % (42.0-72.0); Platelet Count* 291 K/uL (140-440); RDW Coefficient of Variation % 12.2 % (11.5-15.5); Red Blood Count 4.19 m/uL (4.00-5.20); White Blood Count* 8.65 K/uL (4.50-11.00)
[2023-06-01 12:46] LABS: Slide Review Reflex No
[2023-06-01] MEDS: METOCLOPRAMIDE HCL 5 MG/ML INJ 10 MG IVP (12:58)
[2023-06-01 12:59] LABS: INR 1.01 (0.91-1.10); Partial Thromboplastin Time* 31 Seconds (23-33); Prothrombin Time 13.9 Seconds
[2023-06-01 13:32] LABS: Fibrinogen* 185 mg/dL (200-450)
--- NOTE | 2023-06-01 13:52 | SUR.PHASEII ---
Pt vitally stable in Phase II, elena pad had scant amount of bleeding upon initial assessment from OR. When Pt began nursing her , she c/o of a gushing feeling, elena pad checked and appeared saturated. Dr Crum called to check on pt. After vaginal exam pt given Hemabate and TXA followed by a 500cc fluid bolus. labs ordered and fundal checks q15 performed. decision made to stay overnight and 2nd does Hemabate given to prior to transferring to OB. EBL 140cc
[2023-06-01] MEDS: ACETAMINOPHEN 500 MG TABLET 1000 MG PO ×2 (15:08→21:46)
[2023-06-01] MEDS: METHYLERGONOVINE MALEATE 0.2 MG/ML INJ IM (15:12)
[2023-06-01] MEDS: LOPERAMIDE HCL 2 MG CAPSULE 4 MG PO (15:48)
[2023-06-01 16:23] LABS: Basophils Percent Auto 0.1 % (0.0-3.0); Hematocrit 38.4 % (33.0-51.0); Hemoglobin* 12.6 gm/dL (12.0-16.0); Immature Granulocytes Pct Auto 0.1 %; Lymphocytes Percent Auto 5.6 % (20-44); Mean Corpuscular HGB Conc 33 gm/dL (32-36); Mean Corpuscular Hemoglobin 31 pg (26-34); Mean Corpuscular Volume 96 fL (80-100); Monocytes Percent Auto 1.3 % (0.0-11.0); Neutrophils Percent Auto 92.9 % (42.0-72.0); Platelet Count* 330 K/uL (140-440); RDW Coefficient of Variation % 12.2 % (11.5-15.5); Red Blood Count 4.02 m/uL (4.00-5.20); White Blood Count* 15.22 K/uL (4.50-11.00)
[2023-06-01 16:26] LABS: INR 0.96 (0.91-1.10); Prothrombin Time 13.3 Seconds
[2023-06-01 16:27] LABS: Partial Thromboplastin Time* 28 Seconds (23-33)
[2023-06-01 16:28] LABS: Fibrinogen* 245 mg/dL (200-450); Slide Review Reflex No
[2023-06-01] MEDS: CLINDAMYCIN 900 MG/50 ML-D5W IVPB ×2 (17:10→23:37)
[2023-06-01] MEDS: VALACYCLOVIR HCL 500 MG TABLET 1000 MG PO (21:46)
[2023-06-02] VITALS (9 sets, daily range): BP systolic 89–100; BP diastolic 46–65; PULSE 67–76; RESP 16; TEMP 36.5–37.3; O2SAT 96–97
[2023-06-02] MEDS: ACETAMINOPHEN 500 MG TABLET 1000 MG PO ×2 (04:26→16:32)
[2023-06-02 07:12] LABS: Basophils Absolute Auto 0.02 K/uL (0.00-0.30); Basophils Percent Auto 0.2 % (0.0-3.0); Eosinophils Absolute Auto 0.05 K/uL (0.00-0.50); Eosinophils Percent Auto 0.6 % (0.0-7.0); Hematocrit 26.5 % (33.0-51.0); Hemoglobin* 8.8 gm/dL (12.0-16.0); Lymphocytes Absolute Auto 2.59 K/uL (0.90-2.90); Lymphocytes Percent Auto 29.8 % (20-44); Mean Corpuscular HGB Conc 33 gm/dL (32-36); Mean Corpuscular Hemoglobin 32 pg (26-34); Mean Corpuscular Volume 96 fL (80-100); Monocytes Percent Auto 6.3 % (0.0-11.0); Neutrophils Absolute Auto 5.47 K/uL (1.7-7.0); Neutrophils Percent Auto 63.1 % (42.0-72.0); Platelet Count* 215 K/uL (140-440); RDW Coefficient of Variation % 12.3 % (11.5-15.5); Red Blood Count 2.77 m/uL (4.00-5.20); White Blood Count* 8.68 K/uL (4.50-11.00)
[2023-06-02 07:20] LABS: INR 1.03 (0.91-1.10); Prothrombin Time 14.1 Seconds
[2023-06-02 07:21] LABS: Fibrinogen* 195 mg/dL (200-450); Partial Thromboplastin Time* 28 Seconds (23-33)
[2023-06-02 07:25] LABS: Slide Review Reflex No
[2023-06-02] MEDS: CLINDAMYCIN 900 MG/50 ML-D5W IVPB (07:29)
--- NOTE | 2023-06-02 08:47 | P.GYNPN_ITS ---
JOURNEYMAN OPERATOR ASSISTANT - A/P Assessment and plan (1) Delayed hemorrhage: Status: Acute (2) Anemia due to acute blood loss: Status: Acute Assessment and Plan: Hemoglobin has fallen from normal 12.6 yesterday afternoon to 8.8 this morning. Platelets continue to be normal, currently at 2:15 a.m.. INR and PTT are normal, but fibrinogen is slightly low at 195. She is not currently having any heavy bleeding. I will repeat the studies at 11:00 a.m. Otherwise, I plan to give Carly IV iron infusion during this hospitalization. (3) Endometritis following delivery: Problem details: Last elevated temperature 100.4? at 4:21 p.m. on 06/01/2023. Gentamicin and clindamycin started on this day. GBS negative during recent . Status: Acute Assessment and Plan: I favor continuation of hospitalization until at least tomorrow morning, to allow for at least 36 hours afebrile. She is agreeable to this plan. Postoperative Procedures: Procedures Operation Date: 06/01/23 09:10 Actual Procedure Side Surgeon p Suction Dilatation & Curettage Maci Crum MD Time Spent With Patient Time: Total time spent is greater than 50% in coordination of care (as documented) at patient's floor/unit and/or counseling patient: Time with patient: less than 15 minutes JOURNEYMAN OPERATOR ASSISTANT- PN:Subj Post-Op Subjective Date Seen: 06/02/23 Post Operative Details: Post-operative day number 1: status post suction uterine curettage for retained placenta day 13 status post normal spontaneous vaginal delivery Carly has been on gentamicin and clindamycin since yesterday for endometritis. She had some shaking chills last night, but has not yet today. She has not noted any heavy bleeding in recent history. She has not been up recently. Her main complaint at this time is headache. Otherwise, she complains of no pain. JOURNEYMAN OPERATOR ASSISTANT-PN: Obj Exam Physical Exam: Vital signs: Temp Pulse Resp BP Pulse Ox O2 Del Method 97.7 F 67 16 99/59 L 96 Room Air 06/02/23 04:29 06/02/23 04:29 06/02/23 04:29 06/02/23 04:29 06/02/23 04:29 06/02/23 04:29 Narrative: General: Pleasant, no acute distress Heart: Regular rate and rhythm, no murmur or gallop Lungs: Clear to auscultation bilaterally Abdomen: Soft, nontender, fundus well below umbilicus Lower extremities: No edema or erythema Scant drops of dried blood on her menstrual pad JOURNEYMAN OPERATOR ASSISTANT - PN: Obj Data Labs Labs: Laboratory Results - last 24 hr 06/01/23 06/01/23 06/02/23 12:38 16:03 06:42 WBC 8.65 15.22 H 8.68 RBC 4.19 4.02 2.77 L Hgb 13.2 12.6 8.8 L Hct 39.5 38.4 26.5 L MCV 94 96 96 MCH 32 31 32 MCHC 33 33 33 RDW Coeff of Brooke 12.2 12.2 12.3 Plt Count 291 330 215 Neut % (Auto) 88.5 H 92.9 H 63.1 Lymph % (Auto) 10.2 L 5.6 L 29.8 [place] % (Auto) 1.0 1.3 6.3 Eos % (Auto) 0.1 0.0 0.6 Baso % (Auto) 0.2 0.1 0.2 Neut # (Auto) 7.70 H 14.10 H 5.47 Lymph # (Auto) 0.90 0.90 2.59 [place] # (Auto) 0.10 0.20 0.50 Eos # (Auto) 0.01 0.00 0.05 Baso # (Auto) 0.02 0.00 0.02 Abs Immat Gran (auto) 0.00 0.00 0.00 Imm/Tot Granulo (auto) 0.0 0.1 0.0 INR 1.01 0.96 1.03 APTT 31 28 28 Fibrinogen 185 L 245 195 L Blood Type A Positive Antibody Screen NEGATIVE Crossmatch (AHG) See Detail
[2023-06-02] MEDS: IRON SUCROSE COMPLEX 200 MG in 0.9 % SODIUM CHLORIDE 100 ml 100 ML IVPB (10:40)
[2023-06-02 12:02] LABS: Basophils Absolute Auto 0.03 K/uL (0.00-0.30); Basophils Percent Auto 0.4 % (0.0-3.0); Eosinophils Absolute Auto 0.11 K/uL (0.00-0.50); Eosinophils Percent Auto 1.5 % (0.0-7.0); Hemoglobin* 8.8 gm/dL (12.0-16.0); Immature Granulocytes Abs Auto 0.01 K/uL (0.00-0.30); Immature Granulocytes Pct Auto 0.1 %; Lymphocytes Absolute Auto 2.53 K/uL (0.90-2.90); Lymphocytes Percent Auto 35.4 % (20-44); Mean Corpuscular HGB Conc 33 gm/dL (32-36); Mean Corpuscular Hemoglobin 31 pg (26-34); Mean Corpuscular Volume 96 fL (80-100); Monocytes Percent Auto 6.7 % (0.0-11.0); Neutrophils Absolute Auto 3.99 K/uL (1.7-7.0); Neutrophils Percent Auto 55.9 % (42.0-72.0); Platelet Count* 215 K/uL (140-440); RDW Coefficient of Variation % 12.6 % (11.5-15.5); White Blood Count* 7.15 K/uL (4.50-11.00)
[2023-06-02 12:04] LABS: Slide Review Reflex No
[2023-06-02 12:17] LABS: INR 1.03 (0.91-1.10); Partial Thromboplastin Time* 30 Seconds (23-33); Prothrombin Time 14.1 Seconds
[2023-06-02 12:18] LABS: Fibrinogen* 202 mg/dL (200-450)
[2023-06-02] MEDS: AMPICILLIN/SULBACTAM 3 GM in 0.9 % SODIUM CHLORIDE Mini-bag 100 ML IVPB ×2 (13:36→19:29)
[2023-06-02] MEDS: VALACYCLOVIR HCL 500 MG TABLET 1000 MG PO (21:48)
[2023-06-03] MEDS: AMPICILLIN/SULBACTAM 3 GM in 0.9 % SODIUM CHLORIDE Mini-bag 100 ML IVPB ×2 (01:45→07:22)
[2023-06-03 01:51] VITALS: BP 98/59; PULSE 71; RESP 16; TEMP 36.7; O2SAT 96
[2023-06-03 07:21] LABS: Basophils Absolute Auto 0.02 K/uL (0.00-0.30); Basophils Percent Auto 0.4 % (0.0-3.0); Eosinophils Absolute Auto 0.15 K/uL (0.00-0.50); Eosinophils Percent Auto 2.7 % (0.0-7.0); Hematocrit 25.4 % (33.0-51.0); Hemoglobin* 8.3 gm/dL (12.0-16.0); Immature Granulocytes Abs Auto 0.01 K/uL (0.00-0.30); Immature Granulocytes Pct Auto 0.2 %; Lymphocytes Absolute Auto 1.83 K/uL (0.90-2.90); Lymphocytes Percent Auto 33.1 % (20-44); Mean Corpuscular HGB Conc 33 gm/dL (32-36); Mean Corpuscular Hemoglobin 32 pg (26-34); Mean Corpuscular Volume 97 fL (80-100); Monocytes Percent Auto 5.8 % (0.0-11.0); Neutrophils Percent Auto 57.8 % (42.0-72.0); Platelet Count* 197 K/uL (140-440); RDW Coefficient of Variation % 12.7 % (11.5-15.5); Red Blood Count 2.62 m/uL (4.00-5.20); White Blood Count* 5.53 K/uL (4.50-11.00)
[2023-06-03 07:23] LABS: Slide Review Reflex No
--- NOTE | 2023-06-03 08:32 | P.DS_ITS ---
DS: Providers Provider Time Seen by Provider: 08:00 Date Seen: 06/03/23 Date of admission: 06/02/23 09:59 Primary care physician: Thania Jose MD Admitting Clinician: Maci Crum MD Attending Physician on discharge: Maci Crum MD Date of Discharge: 06/03/23 DS: Diagnosis Discharge Diagnosis (1) Endometritis following delivery: Status: Acute Problem details: Last elevated temperature 100.4? at 4:21 p.m. on 06/01/2023. Gentamicin and clindamycin started on this day. GBS negative during recent . 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 Indication for surgery: Possible retained products of conception. Intraoperative findings were notable for: 1. A 8 weeks size mobile, midline, no adnexal masses on EUA 2. Normal external genitalia - periurethral lacerations healing well. Suture knots on right and left labia still present 3. Cervix dilated to 1-2 cm with large clot passing through. 4. Fundus boggy 4 cm below umbilicus. Fundal massage expressed copious amount of clots. She had an uncomplicated surgery. Postoperative course was complicated by increased bleeding in PACU requiring multiple uterotonics. Coags were abnormal for a low fibrinogen. She received 1u of cryoprecipitate. Soon after that, Colleen started having fevers and treatment for endometritis was initiated. She initially received gentamicin 5mg/kg and clindamycin 900 mg Q8H. However, there was a clindamycin shortage so she was switched Unasyn Q6H. Vitals have been stable. She achieved 24 hours afebrile, and antibiotics were discontinued. Her acute blood loss anemia was treated with IV iron infusion. She reports feeling much improved and endorses mild pelvic, vulva/vaginal soreness from all the exams. She is tolerating a regular diet. She has passed flatus and had BM. She is ambulating without difficulty. Lochia is appropriate. Today, on postoperative day 2, she reports the pain is well controlled on oral pain medication. Stable and appropriate for discharge with strict return precautions. Bleeding precautions: If patient is soaking >2 maxipads/hour for > 2 hours, feeling short of breath, lightheaded, having fevers, or severe pain, surgical intervention may be indicated. Patient should seek care at the nearest emergency department. Time Spent with Patient Time attestation: Total time spent providing and/or coordinating discharge services: SOLID PROPELLANT PROCESSOR - Exam Physical Exam: Vital signs: Temp Pulse Resp BP Pulse Ox O2 Del Method 98.1 F 71 16 98/59 L 96 Room Air 06/03/23 01:51 06/03/23 01:51 06/03/23 01:51 06/03/23 01:51 06/03/23 01:51 06/03/23 01:50 Narrative: Physical exam: General: No acute distress Psych: Alert and oriented x3, full affect HEENT: Normocephalic, atraumatic, mild conjunctival pallor Heart: Regular rate and rhythm, no murmur rub or gallop Lungs: Clear to auscultation bilaterally Abdomen: Normoactive bowel sounds, soft, mild tenderness on deep palpation in lower L quadrant, no rebound, or guarding. No fundal tenderness Lower extremities: No edema or erythema Pelvic exam: Scant lochia on pad SOLID PROPELLANT PROCESSOR - DS: Data Data Completed and Pending Completed studies during hospitalization: Procedures Delivery of Products of Conception, External Approach (05/20/23) Introduction of Other Hormone into Peripheral Vein, Percutaneous Approach (05/20/23) Labs on day of discharge: Labs from last 24 hours 06/03/23 06/02/23 06:55 11:50 WBC 5.53 7.15 RBC 2.62 L 2.80 L Hgb 8.3 L 8.8 L Hct 25.4 L 27.0 L MCV 97 96 MCH 32 31 MCHC 33 33 RDW Coeff of Brooke 12.7 12.6 Plt Count 197 215 Neut % (Auto) 57.8 55.9 Lymph % (Auto) 33.1 35.4 [place] % (Auto) 5.8 6.7 Eos % (Auto) 2.7 1.5 Baso % (Auto) 0.4 0.4 Neut # (Auto) 3.20 3.99 Lymph # (Auto) 1.83 2.53 [place] # (Auto) 0.30 0.50 Eos # (Auto) 0.15 0.11 Baso # (Auto) 0.02 0.03 Abs Immat Gran (auto) 0.01 0.01 Imm/Tot Granulo (auto) 0.2 0.1 INR 1.03 APTT 30 Fibrinogen 202 Procedures Procedures: Procedures Operation Date: 06/01/23 09:10 Actual Procedure Side Surgeon p Suction Dilatation & Curettage Maci Crum MD Discharge Plan Discharge Disposition: Home, Self-Care Date of Admission: 06/02/23 09:59 Primary Care Provider: Thania Jose Condition: Stable Anticipated Discharge Date/Time: 06/03/23 08:19 Discharge Medications: New acetaminophen 500 mg Tablet 1,000 mg PO Q6H PRN (Reason: Pain) 14 Days Qty: 30 0RF oxycodone 5 mg Tablet 5 mg PO Q4H PRN (Reason: 4 OR GREATER ON PAIN SCALE) 14 Days Qty: 10 0RF Continued DHA 200 mg capsule 1 mg PO DAILY famotidine [Pepcid] 20 mg tablet 20 mg PO QDAY ibuprofen 600 mg Tablet 600 mg PO Q6H PRNQty: 30 0RF valacyclovir 1 gram tablet 1,000 mg PO QDAY Qty: 90 1RF Rx Instructions: 1,000 mg orally every day; or 1 gram per day. No Action docusate sodium 100 mg capsule 100 mg PO BID PRN (Reason: constipation) Qty: 100 0RF Discharge Orders: Discharge Order (Routine); Ordered 06/03/23 Ordered By: Maci Crum Patient Education: Endometritis (DC), Dilation and Curettage (DC) Activity Level: Activity as Tolerated Activity Detail: Pelvic rest until 6 weeks Discharge Diet: Regular Follow Up Appointments: Maci Crum MD [Staff Physician] - 06/17/23 2:15 pm ([place]) [facility] Discharge Comments: - Patient had complications requiring surgery and readmission, please allow for an additional 6-8 weeks of recovery as needed.
[2023-06-03 09:36] VITALS: BP 112/74; PULSE 74; RESP 16; TEMP 37.1; O2SAT 96
== END 2023-06-03 10:06 | disposition home or self-care (01) | DRG 769 ==
LOC: OR 10:44 → OB 10:44
PROVIDERS: Obstetrics & Gynecology; Admitting Provider Obstetrics & Gynecology; PCP Obstetrics & Gynecology; Visit Provider Obstetrics & Gynecology
PROC: 10D17ZZ Extraction of Products of Conception, Retained, Via Natural or Artificial Opening (ICD-10-PCS; principal; 2023-06-01 09:00)
DX: O72.2 Delayed and secondary postpartum hemorrhage (principal); D62 Acute posthemorrhagic anemia; O86.12 Endometritis following delivery; R42 Dizziness and giddiness; O90.81 Anemia of the puerperium; R51.9 Headache, unspecified; K59.00 Constipation, unspecified
CPT/HCPCS: 00940; 01965; 36415; 36430; 76856; 76857; 76998; 85025; 85384; 85610; 85730; 86850; 86900; 86901; 86922; 88305; A9270; J0295; J1100; J1580; J1756; J1885; J2175; J2210; J2250; J2405; J2704; J2765; J3010; J7120; P9012; S0077

== ENCOUNTER 2023-06-06 22:34 | Emergency (ER) | payer OTHER, SELFPAY ==
[2023-06-06 22:45] VITALS: BP 106/71; PULSE 71; RESP 18; TEMP 35.4; O2SAT 100
--- NOTE | 2023-06-06 22:48 | CRLHL7_ITS ---
For Patients: As a result of the Century Cures Act, medical imaging exams and procedure reports are released immediately into your electronic medical record. You may view this report before your referring provider. If you have questions, please contact your health care provider. CLINICAL HISTORY: Three weeks 5 days DC for retained products conception TECHNIQUE: Real time, colmenares scale images were acquired of the pelvis using a transabdominal and transvaginal approach. FINDINGS: Uterus measures 9.3 x 7.1 centimeters. Endometrial cavity is expanded with heterogeneous material which is avascular. Given clinical history this may represent hematoma. Ovaries are not seen no free fluid. IMPRESSION: Endometrium is expanded with avascular heterogeneous material measuring 6.1 x 5.6 x 6.4 centimeters which could reflect hematoma. Dictated by Aixa Jones MD @ 06/07/2023 1:15:25 AM (Electronically Signed)
--- NOTE | 2023-06-06 23:10 | ED.GENADULT ---
HPI - General Adult General Chief complaint: Post OB/Post- Complication <Ashley Mayorga MD - Last Filed: 06/08/23 06:04> Stated complaint: Vaginal bleeding <Ashley Mayorga MD - Last Filed: 06/08/23 06:04> Time Seen by Provider: 06/06/23 23:01 <Ashley Mayorga MD - Last Filed: 06/08/23 06:04> History of Present Illness HPI narrative: 32-year-old female 3 weeks presenting with vaginal bleeding. Patient had he complicated postoperative experience with a hemorrhage approximately 2 weeks with retained placenta and endometritis. Today around 8:00 p.m. she went to breast feed baby 3. When she had a gush of blood per vagina. In the last hour and a half this bleeding has slowed down quite a bit. She does feel like she has small gush is when she has to urinate. She does not feel lightheaded or short of breath. No recent fevers since her discharge. No nausea or vomiting. Appetite has been normal. Normal urination and no diarrhea. <Ashley Mayorga MD - Last Filed: 06/08/23 06:04> Related Data Home medications: Home Medications Medication Instructions Recorded Confirmed docosahexaenoic acid 200 mg 1 mg PO DAILY 10/14/22 05/20/23 capsule ( DHA) famotidine 20 mg tablet (Pepcid) 20 mg PO QDAY 12/16/22 05/20/23 Previous Rx's Medication Instructions Recorded valacyclovir 1 gram tablet 1,000 mg PO QDAY #90 tabs 01/05/23 ibuprofen 600 mg tablet 600 mg PO Q6H PRN #30 tabs 05/20/23 acetaminophen 500 mg tablet 1,000 mg (2 x 500 mg) PO Q6H PRN 06/03/23 Pain 14 days #30 tabs docusate sodium 100 mg capsule 100 mg PO BID PRN constipation 06/03/23 #100 caps oxycodone 5 mg tablet 5 mg PO Q4H PRN 4 OR GREATER ON 06/03/23 PAIN SCALE 14 days #10 tabs methylergonovine 0.2 mg tablet 0.2 mg PO QID 5 days #19 tabs 06/07/23 (Methergine) <Ashley Mayorga MD - Last Filed: 06/08/23 06:04> Allergies/adverse reactions: Allergies Allergy/AdvReac Type Severity Reaction Status Date / Time banana Allergy Severe Abdominal Verified 06/01/23 08:08 Pain tree nut Allergy Mild Verified 06/01/23 08:08 adhesive tape Allergy Verified 06/01/23 08:08 avocado Allergy Verified 06/01/23 08:08 <Ashley Mayorga MD - Last Filed: 06/08/23 06:04> Review of Systems Status of ROS: Reports: 10 or more systems reviewed and unremarkable except as noted in History and below <Ashley Mayorga MD - Last Filed: 06/08/23 06:04> [facility] Medical History: Medical History Normal spontaneous vaginal delivery (05/20/23) ?O80 - Encounter for full-term uncomplicated delivery (ICD-10) Tear of acetabular labrum ?S73.199A - Other sprain of unspecified hip, initial encounter (ICD-10) Genital herpes simplex ?A60.00 - Herpesviral infection of urogenital system, unspecified (ICD-10) <Ashley Mayorga MD - Last Filed: 06/08/23 06:04> Surgical History: Surgical History History of wisdom tooth extraction ?K08.409 - Partial loss of teeth, unspecified cause, unspecified class (ICD-10) <Ashley Mayorga MD - Last Filed: 06/08/23 06:04> Family History: Family History Grandmother Diabetes <Ashley Mayorga MD - Last Filed: 06/08/23 06:04> Social History: 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 What is your current living situation?: I presently have a place to live Problems where you live: no known problems In the past 12 months, utilities in danger of being shut off: no In the past 12 mos, have been you worried that your food would run out before you had money to buy more?: never true In the past 12 mos, the food you bought just didn't last and you didn't have money to buy more?: never true Smoking Status: Never smoker How often do you have a drink containing alcohol: never AUDIT-C Alcohol total score: 0 Non-prescribed substance use: denies use Caffeine: No How often does anyone, including family, friends and others, physically hurt you: never How often does anyone, including family, friends and others, insult or talk down to you: never How often does anyone, including family, friends and others, threaten you with harm: never How often does anyone, including family, friends and others, scream or curse at you: never Little interest or pleasure in doing things: not at all Feeling down, depressed, or hopeless: not at all Are you using contraception or practicing any form of control: No <Ashley Mayroga MD - Last Filed: 06/08/23 06:04> Exam Narrative: Exam Narrative: Well-nourished well-developed patient in no acute distress. Alert and oriented. Answers questions appropriately. Mood and affect are appropriate. Thoughts are goal oriented and rational. No tangential or magical thinking noted. Patient speaks in full sentences without needing to catch her breath. Not appear ill or toxic. HEENT: Normocephalic atraumatic. Pupils are equally round reactive to light. Extraocular muscles are intact. Conjunctivae are moist without any icterus noted. Moist mucous membranes. Posterior pharynx is normal. Neck is soft without any lymphadenopathy or thyromegaly. No masses are appreciated. Cardiovascular: Heart is regular rate and rhythm S1 and S2 are present without any murmurs. Lungs: Clear to auscultation bilaterally no wheezes rhonchi or rales are appreciated. Patient takes deep breaths without any discomfort. Abdomen: Soft and nondistended with normal bowel sounds. No guarding or rebound. Uterus is firm and appropriate in size 3 weeks . She has minimal tenderness along the left abdomen. Extremities: Bilateral lower extremities are without edema. Normal DP and PT pulses. Skin: Well perfused without any obvious rashes. <Ashley Mayorga MD - Last Filed: 06/08/23 06:04> Const: Vital Signs, click to edit/add: Vital Signs - 24 hr 06/06/23 22:45 06/07/23 00:42 Temperature 95.8 F L Pulse Rate [Left P ulse Oximeter] 71 72 Respiratory Rate 18 16 Blood Pressure [Ri ght Upper Arm] 106/71 101/72 Pulse Oximetry 100 98 Oxygen Delivery Me thod Room Air Room Air <Ashley Mayorga MD - Last Filed: 06/08/23 06:04> Vital Signs, click to edit/add: Vital Signs - 24 hr 06/06/23 22:45 06/07/23 00:42 Temperature 95.8 F L Pulse Rate [Left P ulse Oximeter] 71 72 Respiratory Rate 18 16 Blood Pressure [Ri ght Upper Arm] 106/71 101/72 Pulse Oximetry 100 98 Oxygen Delivery Me thod Room Air Room Air <Ashley Ha MD - Last Filed: 06/07/23 01:46> Course Course Hospital Course: I consulted with Dr. Cavazos who recommended some lab work and an ultrasound which were ordered. CBC shows normal white cell count, hemoglobin is 9.9. This is up from 8.3 a discharge. INR and fibrinogen unremarkable. Chemistries were normal, LFTs unremarkable. Normal CRP. Ultrasound results pending. Care transferred to oncoming physician. <Ashley Mayorga MD - Last Filed: 06/08/23 06:04> Consultations Consultation #1: Reviewed ultrasound with Dr. Cavazos, stable hemoglobin. She is going to talk to the patient. They will let me know with a definitive plan will be. There is talk of discharge home with Methergine at this time. <Ashley Ha MD - Last Filed: 06/07/23 01:46> Time: 01:21 <Ashley Ha MD - Last Filed: 06/07/23 01:46> Vital Signs Vital signs: Initial Vital Signs Temperature 95.8 F L 06/06/23 22:45 Temperature Source Temporal Artery Scan 06/06/23 22:45 Pulse Rate 71 06/06/23 22:45 Pulse Rhythm Regular 06/06/23 22:45 Respiratory Rate 18 06/06/23 22:45 Blood Pressure 106/71 06/06/23 22:45 Blood Pressure Mean 82 06/06/23 22:45 Blood Pressure Position Sitting 06/06/23 22:45 Pulse Oximetry 100 06/06/23 22:45 Oxygen Delivery Method Room Air 06/06/23 22:45 Vital Signs Temperature 95.8 F L 06/06/23 22:45 Pulse Rate 71 06/06/23 22:45 Respiratory Rate 18 06/06/23 22:45 Blood Pressure 106/71 06/06/23 22:45 Pulse Oximetry 100 06/06/23 22:45 Oxygen Delivery Method Room Air 06/06/23 22:45 Temperature 95.8 F L 06/06/23 22:45 Pulse Rate 72 06/07/23 00:42 Respiratory Rate 16 06/07/23 00:42 Blood Pressure 101/72 06/07/23 00:42 Pulse Oximetry 98 06/07/23 00:42 Oxygen Delivery Method Room Air 06/07/23 00:42 <Ashley Mayorga MD - Last Filed: 06/08/23 06:04> Initial Vital Signs Temperature 95.8 F L 06/06/23 22:45 Temperature Source Temporal Artery Scan 06/06/23 22:45 Pulse Rate 71 06/06/23 22:45 Pulse Rhythm Regular 06/06/23 22:45 Respiratory Rate 18 06/06/23 22:45 Blood Pressure 106/71 06/06/23 22:45 Blood Pressure Mean 82 06/06/23 22:45 Blood Pressure Position Sitting 06/06/23 22:45 Pulse Oximetry 100 06/06/23 22:45 Oxygen Delivery Method Room Air 06/06/23 22:45 Vital Signs Temperature 95.8 F L 06/06/23 22:45 Pulse Rate 71 06/06/23 22:45 Respiratory Rate 18 06/06/23 22:45 Blood Pressure 106/71 06/06/23 22:45 Pulse Oximetry 100 06/06/23 22:45 Oxygen Delivery Method Room Air 06/06/23 22:45 Temperature 95.8 F L 06/06/23 22:45 Pulse Rate 72 06/07/23 00:42 Respiratory Rate 16 06/07/23 00:42 Blood Pressure 101/72 06/07/23 00:42 Pulse Oximetry 98 06/07/23 00:42 Oxygen Delivery Method Room Air 06/07/23 00:42 <Ashley Ha MD - Last Filed: 06/07/23 01:46> Medical Decision Making Lab Data Labs: Lab Results 06/06/23 Range/Units 23:22 WBC 7.59 (4.50-11.00) K/uL RBC 3.16 L (4.00-5.20) m/uL Hgb 9.9 L (12.0-16.0) gm/dL Hct 30.3 L (33.0-51.0) % MCV 96 (80-100) fL MCH 31 (26-34) pg MCHC 33 (32-36) gm/dL RDW Coeff of Brooke 12.4 (11.5-15.5) % Plt Count 320 (140-440) K/uL Neut % (Auto) 54.6 (42.0-72.0) % Lymph % (Auto) 35.2 (20-44) % [place] % (Auto) 7.6 (0.0-11.0) % Eos % (Auto) 1.8 (0.0-7.0) % Baso % (Auto) 0.1 (0.0-3.0) % Neut # (Auto) 4.14 (1.7-7.0) K/uL Lymph # (Auto) 2.67 (0.90-2.90) K/uL [place] # (Auto) 0.60 (0.00-0.90) K/UL Eos # (Auto) 0.14 (0.00-0.50) K/uL Baso # (Auto) 0.01 (0.00-0.30) K/uL Abs Immat Gran (auto) 0.05 (0.00-0.30) K/uL Imm/Tot Granulo (auto) 0.7 % INR 0.87 L (0.91-1.10) Fibrinogen 303 (200-450) mg/dL Sodium 138 (135-149) mmol/L Potassium 3.8 (3.6-5.1) mmol/L Chloride 107 (96-114) mmol/L Carbon Dioxide 25 (20-32) mmol/L BUN 20 (5-24) mg/dL Creatinine 0.8 (0.5-1.5) mg/dL Estimated GFR 100 ml/min Glucose 108 (60-115) mg/dL Calcium 9.0 (8.4-10.6) mg/dL Total Bilirubin 0.2 (0.1-1.5) mg/dL Direct Bilirubin 0.0 (0.0-0.5) mg/dL AST 44 H (12-35) U/L ALT 43 H (4-35) U/L Alkaline Phosphatase 73 (40-150) U/L C-Reactive Protein 0.6 (0.5-1.0) mg/dL Total Protein 6.9 (6.0-8.3) g/dL Albumin 4.0 (3.3-5.0) g/dL <Ashley Mayorga MD - Last Filed: 06/08/23 06:04> Lab Results 06/06/23 Range/Units 23:22 WBC 7.59 (4.50-11.00) K/uL RBC 3.16 L (4.00-5.20) m/uL Hgb 9.9 L (12.0-16.0) gm/dL Hct 30.3 L (33.0-51.0) % MCV 96 (80-100) fL MCH 31 (26-34) pg MCHC 33 (32-36) gm/dL RDW Coeff of Brooke 12.4 (11.5-15.5) % Plt Count 320 (140-440) K/uL Neut % (Auto) 54.6 (42.0-72.0) % Lymph % (Auto) 35.2 (20-44) % [place] % (Auto) 7.6 (0.0-11.0) % Eos % (Auto) 1.8 (0.0-7.0) % Baso % (Auto) 0.1 (0.0-3.0) % Neut # (Auto) 4.14 (1.7-7.0) K/uL Lymph # (Auto) 2.67 (0.90-2.90) K/uL [place] # (Auto) 0.60 (0.00-0.90) K/UL Eos # (Auto) 0.14 (0.00-0.50) K/uL Baso # (Auto) 0.01 (0.00-0.30) K/uL Abs Immat Gran (auto) 0.05 (0.00-0.30) K/uL Imm/Tot Granulo (auto) 0.7 % INR 0.87 L (0.91-1.10) Fibrinogen 303 (200-450) mg/dL Sodium 138 (135-149) mmol/L Potassium 3.8 (3.6-5.1) mmol/L Chloride 107 (96-114) mmol/L Carbon Dioxide 25 (20-32) mmol/L BUN 20 (5-24) mg/dL Creatinine 0.8 (0.5-1.5) mg/dL Estimated GFR 100 ml/min Glucose 108 (60-115) mg/dL Calcium 9.0 (8.4-10.6) mg/dL Total Bilirubin 0.2 (0.1-1.5) mg/dL Direct Bilirubin 0.0 (0.0-0.5) mg/dL AST 44 H (12-35) U/L ALT 43 H (4-35) U/L Alkaline Phosphatase 73 (40-150) U/L C-Reactive Protein 0.6 (0.5-1.0) mg/dL Total Protein 6.9 (6.0-8.3) g/dL Albumin 4.0 (3.3-5.0) g/dL <Ashley Ha MD - Last Filed: 06/07/23 01:46> Imaging Data US pelvis: Attestation: I have reviewed the pertinent imaging results. <Ashley Ha MD - Last Filed: 06/07/23 01:46> Radiologist's impression: Patient: CARROL DAVIS Facility:?[facility] Patient ID:?[id number] Site Patient ID:?[id number]. Site :?[id number] Study:?US Pelvis -06/07/2023 12:07:04 AM Ordering Physician:Geraldo Ramirez Final Report: CLINICAL HISTORY: Three weeks 5 days DC for retained products conception TECHNIQUE: Real time, colmenares scale images were acquired of the pelvis using a transabdominal and transvaginal approach. FINDINGS: Uterus measures 9.3 x 7.1 centimeters. Endometrial cavity is expanded with heterogeneous material which is avascular. Given clinical history this may represent hematoma. Ovaries are not seen no free fluid. IMPRESSION: Endometrium is expanded with avascular heterogeneous material measuring 6.1 x 5.6 x 6.4 centimeters which could reflect hematoma. Dictated by Aixa Jones MD @ 06/07/2023 1:15:25 AM (Electronic Signature) <Ashley Ha MD - Last Filed: 06/07/23 01:46> Discharge Plan Discharge Clinical Impression: bleeding <Ashley Mayorga MD - Last Filed: 06/08/23 06:04> Patient Disposition: Home, Self-Care <Ashley Mayorga MD - Last Filed: 06/08/23 06:04> Condition: Stable <Ashley Mayorga MD - Last Filed: 06/08/23 06:04> Additional Instructions: Take Methergine as prescribed. Follow-up with OB [facility] as per your conversation with Dr. Cavazos. <Ashley Mayorga MD - Last Filed: 06/08/23 06:04> Activity Level: Activity as Tolerated <Ashley Mayorga MD - Last Filed: 06/08/23 06:04> Activity as Tolerated <Ashley Ha MD - Last Filed: 06/07/23 01:46> Prescriptions: New methylergonovine [Methergine] 0.2 mg tablet 0.2 mg PO QID 5 Days Qty: 19 0RF No Action DHA 200 mg capsule 1 mg PO DAILY famotidine [Pepcid] 20 mg tablet 20 mg PO QDAY acetaminophen 500 mg Tablet 1,000 mg PO Q6H PRN (Reason: Pain) 14 Days Qty: 30 0RF oxycodone 5 mg Tablet 5 mg PO Q4H PRN (Reason: 4 OR GREATER ON PAIN SCALE) 14 Days Qty: 10 0RF ibuprofen 600 mg Tablet 600 mg PO Q6H PRNQty: 30 0RF valacyclovir 1 gram tablet 1,000 mg PO QDAY Qty: 90 1RF Rx Instructions: 1,000 mg orally every day; or 1 gram per day. docusate sodium 100 mg capsule 100 mg PO BID PRN (Reason: constipation) Qty: 100 0RF <Ashley Mayorga MD - Last Filed: 06/08/23 06:04> Follow Up/Referrals: Thania Jose MD [Primary Care Provider] - <Ashley Mayorga MD - Last Filed: 06/08/23 06:04> Stand Alone Forms: [facility] Info Instructions <Ashley Mayorga MD - Last Filed: 06/08/23 06:04>
[2023-06-06 23:27] LABS: Basophils Absolute Auto 0.01 K/uL (0.00-0.30); Basophils Percent Auto 0.1 % (0.0-3.0); Eosinophils Absolute Auto 0.14 K/uL (0.00-0.50); Eosinophils Percent Auto 1.8 % (0.0-7.0); Hematocrit 30.3 % (33.0-51.0); Hemoglobin* 9.9 gm/dL (12.0-16.0); Immature Granulocytes Abs Auto 0.05 K/uL (0.00-0.30); Immature Granulocytes Pct Auto 0.7 %; Lymphocytes Absolute Auto 2.67 K/uL (0.90-2.90); Lymphocytes Percent Auto 35.2 % (20-44); Mean Corpuscular HGB Conc 33 gm/dL (32-36); Mean Corpuscular Hemoglobin 31 pg (26-34); Mean Corpuscular Volume 96 fL (80-100); Monocytes Percent Auto 7.6 % (0.0-11.0); Neutrophils Absolute Auto 4.14 K/uL (1.7-7.0); Neutrophils Percent Auto 54.6 % (42.0-72.0); Platelet Count* 320 K/uL (140-440); RDW Coefficient of Variation % 12.4 % (11.5-15.5); Red Blood Count 3.16 m/uL (4.00-5.20); White Blood Count* 7.59 K/uL (4.50-11.00)
[2023-06-06 23:43] LABS: Chloride* 107 mmol/L (96-114); Sodium* 138 mmol/L (135-149)
[2023-06-06 23:44] LABS: Potassium* 3.8 mmol/L (3.6-5.1)
[2023-06-06 23:45] LABS: Creatinine* 0.8 mg/dL (0.5-1.5); Estimated Glomerular Filt Rate 100 ml/min
[2023-06-06 23:46] LABS: Alkaline Phosphatase* 73 U/L (40-150); Aspartate Amino Transferase* 44 U/L (12-35); Bilirubin Total* 0.2 mg/dL (0.1-1.5); Blood Urea Nitrogen* 20 mg/dL (5-24); Carbon Dioxide* 25 mmol/L (20-32); Total Protein* 6.9 g/dL (6.0-8.3)
[2023-06-06 23:47] LABS: Alanine Aminotransferase* 43 U/L (4-35); Glucose* 108 mg/dL (60-115)
[2023-06-06 23:48] LABS: Slide Review Reflex No
[2023-06-06 23:49] LABS: C Reactive Protein* 0.6 mg/dL (0.5-1.0); INR 0.87 (0.91-1.10); Prothrombin Time 12.3 Seconds
[2023-06-07 00:02] LABS: Fibrinogen* 303 mg/dL (200-450)
[2023-06-07 00:42] VITALS: BP 101/72; PULSE 72; RESP 16; O2SAT 98
[2023-06-07] MEDS: METHYLERGONOVINE MALEATE 0.2 MG TABLET PO (02:00)
== END 2023-06-07 02:22 | disposition home or self-care (01) ==
PROVIDERS: Emergency Provider Family Medicine; PCP Obstetrics & Gynecology
DX: O72.1 Other immediate postpartum hemorrhage (principal)
CPT/HCPCS: 36415; 76830; 80048; 80076; 85025; 85384; 85610; 86140; 99284; A9270

== ENCOUNTER 2023-10-04 14:44 | Emergency (ER) | payer OTHER, SELFPAY ==
[2023-10-04 14:51] VITALS: BP 116/79; PULSE 73; RESP 18; TEMP 36.9; O2SAT 99; BMI 20.3
--- NOTE | 2023-10-04 15:01 | ED.GENADULT ---
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 No other specific complaints. She does wear contacts. She took them out has not worn them. Related Data Home Medications Medication Instructions Recorded Confirmed docosahexaenoic acid 200 mg mg PO 07/24/23 07/24/23 capsule ( DHA) Previous Rx's Medication Instructions Recorded ibuprofen 600 mg tablet 600 mg PO Q6H PRN #30 tabs 05/20/23 acetaminophen 500 mg tablet 1,000 mg (2 x 500 mg) PO Q6H PRN 06/03/23 Pain 14 days #30 tabs valacyclovir 1 gram tablet 1,000 mg PO QDAY #90 tabs 07/16/23 azithromycin 250 mg tablet See Rx Instructions PO .COMPLEX #6 08/03/23 tabs Allergies Allergy/AdvReac Type Severity Reaction Status Date / Time banana Allergy Severe Abdominal Verified 07/24/23 10:29 Pain tree nut Allergy Mild Verified 07/24/23 10:29 adhesive tape Allergy Verified 07/24/23 10:29 avocado Allergy Verified 07/24/23 10:29 Review of Systems Narrative: No real trouble with eye infections in the past PFSH PFSH Medical History Normal spontaneous vaginal delivery (05/20/23) ?O80 - Encounter for full-term uncomplicated delivery (ICD-10) Tear of acetabular labrum ?S73.199A - Other sprain of unspecified hip, initial encounter (ICD-10) Genital herpes simplex ?A60.00 - Herpesviral infection of urogenital system, unspecified (ICD-10) Surgical History History of wisdom tooth extraction ?K08.409 - Partial loss of teeth, unspecified cause, unspecified class (ICD-10) Family History Grandmother Diabetes 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 What is your current living situation?: I presently have a place to live Problems where you live: no known problems In the past 12 months, utilities in danger of being shut off: no In past 12 months, lack of transportation kept you from medical appts, meetings, work, or getting things needed for daily living: no In the past 12 mos, have been you worried that your food would run out before you had money to buy more?: never true In the past 12 mos, the food you bought just didn't last and you didn't have money to buy more?: never true Smoking Status: Never smoker How often do you have a drink containing alcohol: never AUDIT-C Alcohol total score: 0 Non-prescribed substance use: denies use Caffeine: No How often does anyone, including family, friends and others, physically hurt you: never How often does anyone, including family, friends and others, insult or talk down to you: never How often does anyone, including family, friends and others, threaten you with harm: never How often does anyone, including family, friends and others, scream or curse at you: never Little interest or pleasure in doing things: not at all Feeling down, depressed, or hopeless: not at all Are you using contraception or practicing any form of control: No Exam Narrative: Exam Narrative: Objective: Afebrile Medial epicanthal mattering and conjunctivitis bilaterally Const: Vital Signs, click to edit/add: Vital Signs - 24 hr 10/04/23 14:51 Temperature 98.5 F Pulse Rate [Pulse Oximeter] 73 Respiratory Rate 18 Blood Pressure [Ri ght Upper Arm] 116/79 Pulse Oximetry 99 Oxygen Delivery Me thod Room Air Course Vital Signs Vital signs: Initial Vital Signs Temperature 98.5 F 10/04/23 14:51 Temperature Source Temporal Artery Scan 10/04/23 14:51 Pulse Rate 73 10/04/23 14:51 Respiratory Rate 18 10/04/23 14:51 Blood Pressure 116/79 10/04/23 14:51 Blood Pressure Mean 91 10/04/23 14:51 Pulse Oximetry 99 10/04/23 14:51 Oxygen Delivery Method Room Air 10/04/23 14:51 Vital Signs Temperature 98.5 F 10/04/23 14:51 Pulse Rate 73 12/03/23 14:51 Respiratory Rate 18 10/04/23 14:51 Blood Pressure 116/79 10/04/23 14:51 Pulse Oximetry 99 10/04/23 14:51 Oxygen Delivery Method Room Air 10/04/23 14:51 Temperature 98.5 F 10/04/23 14:51 Pulse Rate 73 10/04/23 14:51 Respiratory Rate 18 10/04/23 14:51 Blood Pressure 116/79 10/04/23 14:51 Pulse Oximetry 99 10/04/23 14:51 Oxygen Delivery Method Room Air 10/04/23 14:51 Medical Decision Making MDM Narrative Medical decision making narrative: 33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 Would write a note for off work for 24 hours until drops have a chance to take effect, still may be viral type infectious but would stay out of school until the eyes are not red or draining. Optimal logic follow-up as needed Discharge Plan Discharge Clinical Impression: Bilateral conjunctivitis Patient Disposition: Home, Self-Care Condition: Stable Instructions: Conjunctivitis (ED) Additional Instructions: Warm loss class to the eyes several times a day to keep them clean of debris, antibiotic eyedrops as prescribed, recheck with eye physician not improving in 2-3 days. No written for off work for 24 hours Activity Level: No Restrictions Discharge Diet: Regular Prescriptions: No Action DHA 200 mg capsule PO acetaminophen 500 mg Tablet 1,000 mg PO Q6H PRN (Reason: Pain) 14 Days Qty: 30 0RF ibuprofen 600 mg Tablet 600 mg PO Q6H PRNQty: 30 0RF valacyclovir 1 gram tablet 1,000 mg PO QDAY Qty: 90 1RF Rx Instructions: 1,000 mg orally every day; or 1 gram per day. azithromycin 250 mg tablet See Rx Instructions PO .COMPLEX Qty: 6 0RF Rx Instructions: For 250 mg dose pack: take 500 mg today (day 1), then 250 mg for 4 days (days 2-5) PO Follow Up/Referrals: Provider,Not a Local [Primary Care Provider] - Stand Alone Forms: [employer] Info Instructions
== END 2023-10-04 15:11 | disposition home or self-care (01) ==
LOC: ED 15:04
PROVIDERS: Emergency Provider Family Medicine
DX: H10.023 Other mucopurulent conjunctivitis, bilateral (principal)
CPT/HCPCS: 99282; 99283

== ENCOUNTER 2024-02-09 18:31 | Outpatient (CLI) | payer OTHER, SELFPAY ==
--- OUTSIDE RECORDS SUMMARY | 2024-02-09 18:34 | XMS_ITS ---
Author Name Unknown Organization [facility] Address [address] [place] [id number] Care Team Providers Care Hospital Intern Name Role Phone Unavailable Unavailable Unavailable Surgery Details Not on file Complications Check Surgery Details section. Procedure Estimated Blood Loss Check Surgery Details section. Procedure Findings Check Surgery Details section. Procedure Specimens Taken Check Surgery Details section.
--- OUTSIDE RECORDS SUMMARY | 2024-02-09 18:34 | XMS_ITS | Referral Summary ---
Author Name Unknown Organization [facility] Address [address] [place] [address] Care Team Providers Care Tear Down Worker Name Role Phone Elsewhere, Pcp Primary Care Provider Unavailabl e Source Comments Patient records contain information from all sites at [facility]. For routine questions regarding patient records, call [phone] during business hours, M-F 8:00 AM - 5:00 PM Central Time. Record requests for emergency care only can be directed to [phone] at any time.[facility] Encounters Date Type Department Care Team Description 01/18/2024 6:10 PM CDT - 01/18/2024 7:33 PM CDT Emergency [facility] [address] [place] [phone] Shannon Sierra, C.N.P., M.S.N., R.N. Infection Upper Respiratory Viral (Primary Dx) Discharge Disposition: Home or Self Care from Last 3 Months Allergies Active Allergy Reactions Criticality Noted Date Comments Adhesive Rash 06/01/2023 Adhesive Tape-Silicones Rash 04/26/2019 Rash with bandaid adhesives Avocado GI intolerance 06/01/2023 Banana GI intolerance Medium 01/09/2012 Tree Nut GI intolerance Low 06/01/2023 Medications Medication Sig Dispensed Refills Start Date End Date Status 25/iron fum/folic/dha (-1 ORAL) Take 1 tablet by mouth. 0 Active acetaminophen (TYLENOL) 325 mg tablet Take 650 mg by mouth. 0 04/20/2019 Active valACYclovir (VALTREX) 500 mg tablet Take 1,000 mg by mouth. 0 Active sennosides (SENOKOT) 8.6 mg tablet Take 2 tablets by mouth 2 (two) times a day. 0 02/25/2018 Active valACYclovir (VALTREX) 1000 mg tablet 0 11/14/2023 Active Active Problems Problem Noted Date Diagnosed Date Herpes Genitalis 04/19/2019 Immunizations Name Administration Dates Next Due 4vHPV (discontinued) 03/30/2009,11/17/2008,06/30 DTP 05/14/1995, 2,02/17/1991,1990 ,1990 H1N1 Inj 09/07/2009 HepB Pediatric/Adolescent 04/13/2003 HepB, Unspecified 04/13/2003 Hib (PRP-T) (ACTHIB, HIBERIX) 01/11/1992, 991,1990 Influenza (IM) Preservative Free 08/10/2013,09/02,09/07/2009 Influenza, Unspecified 09/07/2009 MCV4 (Menactra)(Discontinued) 06/30/2008 MMR 01/11/1992 OPV 05/14/1995,10/08/1992,1990 ,1990 PPD Test 06/12/2020 Social History Tobacco Use Types Packs/Day Years Used Date Smoking Tobacco: Never Smokeless Tobacco: Never Tobacco Cessation:Counseling Given: Not Answered Humiliation, Afraid, Rape, and Kick questionnair e Answer Date Recorded Within the last year, have y ou been afraid of your partner or ex-partner? No 06/12/2020 Within the last year, have y ou been humiliated or emotionally abused in other ways by your partner or ex-partner? No Within the last year, have y ou been kicked, hit, slapped, or otherwise physically hurt by your partner or ex-partner? No 06/12/2020 Within the last year, have y ou been raped or forced to have any kind of sexual activity by your partner or ex-partner? No 06/12/2020 Social Connection and Isolat ion Panel [NHANES] Answer Date Recorded In a typical week, how many times do you talk on the phone with family, friends, or neighbors? More than three times a week 06/12/2020 How often do you get togethe r with friends or relatives? Three times a week 06/12/2020 How often do you attend chur ch or latter day services? More than 4 times per year 06/12/2020 Do you belong to any clubs o r organizations such as presybeterian groups, unions, fraternal or athletic groups, or school groups? Patient declined 06/12/2020 How often do you attend meet ings of the clubs or organizations you belong to? Patient declined 06/12/2020 Are you , , di vorced, , never , or living with a partner? 06/12/2020 AUDIT-C Answer Date Recorded Q1: How often do you have a drink containing alc ohol? Monthly or less 06/12/2020 Q2: How many drinks containi ng alcohol do you have on a typical day when you are drinking? 1 or 2 06/12/2020 Q3: How often do you have si x or more drinks on one occasion? Never 06/12/2020 Overall Financial Resource Strain (CARDIA) Answe r Date Recorded How hard is it for you to pa y for the very basics like food, housing, medical care, and heating? Not hard at all 06/12/2020 PHQ-2 Answer Date Recorded PHQ-2 Score 0 06/12/2020 [facility] - Occupational Stress Questionnaire Answer Date Recorded Do you feel stress - tense, restless, nervous, or anxious, or unable to sleep at night because your mind is troubled all the time - these days? Not at all 06/12/2020 Exercise Vital Sign Answer Date Recorde d On average, how many days pe r week do you engage in moderate to strenuous exercise (like a brisk walk)? 6 days 06/12/2020 On average, how many minutes do you engage in exercise at this level? 40 min 06/12/2020 Hunger Vital Sign Answer Date Recorded Within the past 12 months, y ou worried that your food would run out before you got the money to buy more. Never true 06/12/20 20 Within the past 12 months, t he food you bought just didn't last and you didn't have money to get more. Never true 06/12/2020 PRAPARE - Transportation Answer Date Re corded In the past 12 months, has l ack of transportation kept you from medical appointments or from getting medications? No 06/02 In the past 12 months, has l ack of transportation kept you from meetings, work, or from getting things needed for daily living? No 06/12/2020 Depression Answer Date Recor ded PHQ-9 Total Score (max 27) 0 06/12 Nutrition Answer Date Recorded Nutrition: EVOO Fat Source Unknown 06/15 Nutrition: Servings of Fruits/Vegetables per Day Not on file 2023 Dental Answer Date Recorded Dental: Regular Dentist Unknown 06/15/20 23 Education Answer Date Recorded What is the highest level of school you have completed or the highest degree you have received? Bachelor's degree (e.g., BA, AB, BS) 06/12/2020 Sex and Gender Information Value Date Recorded Sex Assigned at Not on file Gender Identity Not on file Sexual Orientation Not on file Last Filed Vital Signs Vital Sign Reading Time Taken Comments Blood Pressure 109/67 01/18/2024 6:09 PM CDT Pulse 54 01/18/2024 6:09 PM CDT Temperature 36.7 ??C (98.1 ??F) 01/18/2024 6:09 PM CD T Respiratory Rate 16 01/18/2024 6:09 PM CDT Oxygen Saturation 98% 01/18/2024 6:09 PM CDT Inhaled Oxygen Concentration - - Weight 54.4 kg (119 lb 14.9 oz) 01/18/2024 6:08 PM CDT Height 164 cm (5' 4.57) 06/12/2020 8:09 AM CDT Body Mass Index 20.23 06/12/2020 8:09 AM CDT Plan of Treatment Not on file Procedures Procedure Name Priority Date/Time Associated Diagnosis Comments SARS COV-2,INFLUENZA A/B,RSV,PCR, V STAT 01/18/2024 6:17 PM CDT GROUP A STREP PCR, THROAT STAT 01/18/2024 6:17 PM CDT from Last 3 Months Results * SARS CoV-2, Influenza A/B, RSV, PCR Symptomatic (01/18/2024 6:17 PM CDT) Influenza A, PCR Undetected Undetected 01/18/20 24 7:10 PM CDT [facility] Comment:Influenza A viral RN A absent. Influenza B, PCR Undetected Undetected 01/18/20 7:10 PM CDT [facility] Comment:Influenza B viral RN A absent. Respiratory Syncytial Virus, PCR Undetected Undetected 01/18/2024 7:10 PM CDT [facility] Comment:RSV RNA absent. SARS-Coronavirus -2, PCR Undetected Undetected 01/18/2024 7:10 PM CDT [facility] Comment: SARS-CoV-2 RNA absent. ?? ----ADDITIONAL INFORMATION---- This RT-PCR test using the Xpert Xpress SARS-CoV-2/Flu/RSV assay ([employer] performed on the GeneOF[employer] DX systems has received Emergency Use Authorization (EUA) by the U.S. Food and Drug Administration. Performance characteristics were verified by [facility] in a manner consistent with CLIA requirements. Fact sheets for this Emergency Use Authorization (EUA) assay can be found at the following links: For Healthcare Providers: https://www.fda.gov/media/042396/download For Patients: https://www.fda.gov/media/804533/download Specimen Source Swab, Nasopharynx 01/18/2024 6:29 PM CDT [facility] Swab (Nasopharynx) 01/18/2024 6:17 PM CDT 01/18/2024 6:29 PM CDT Shannon Sierra C.N.P., M.S.N., R.N. LAB MICROBIOLOGY - GENERAL ORDERABLES [facility] [address] [place] [address] [facility] [place] [address] * Group A Streptococcus PCR, Throat (01/18/2024 6:17 PM CDT) Group A Streptococcus PCR, Throat Negative Negative 01/18/2024 7:01 PM CDT [facility] Swab (Throat) 01/18/2024 6:1 7 PM CDT 01/18/2024 6:28 PM CDT Nyasia Rico C.N.P., M.S.N., R.N. NELSON Carpenter MICROBIOLOGY - GENERAL ORDERABLES [facility] [address] [place] [address], [facility] [place] [address] from Last 3 Months Care Teams Tear Down Worker Relationship Specialty Start Date End Date Elsewhere, Pcp PCP - General Internal Medicine 06/25/23
--- OUTSIDE RECORDS SUMMARY | 2024-02-09 18:34 | XMS_ITS | Clinical Summary ---
Author Name Unknown Organization [facility] Address [address] [place] [address] Care Team Providers Care Loom Blower Name Role Phone Elsewhere, Pcp Primary Care Provider Unavailabl e Source Comments Patient records contain information from all sites at [facility]. For routine questions regarding patient records, call [phone] during business hours, M-F 8:00 AM - 5:00 PM Central Time. Record requests for emergency care only can be directed to [phone] at any time.[facility] Allergies Active Allergy Reactions Criticality Noted Date [...] Noted Date Diagnosed Date Herpes Genitalis 04/19/2019 Encounters Date Type Department Care Team Description 01/18/2024 6:10 PM CDT - 01/18/2024 7:33 PM CDT Emergency [place] [facility] [address] [place] [phone] Shannon Sierra C.N.P., M.S.N., R.N. Infection Upper Respiratory Viral (Primary Dx) Discharge Disposition: Home or Self Care from Last 3 Months Immunizations Name Administration Dates Next Due 4vHPV (discontinued) 03/30/2009,11/17/2008,06/30 DTP 05/14/1995, 2,02/17/1991,1990 ,1990 H1N1 Inj 09/07/2009 HepB Pediatric/Adolescent 04/13/2003 HepB, Unspecified 04/13/2003 Hib (PRP-T) (ACTHIB, HIBERIX) 01/11/1992, 991,1990 Influenza (IM) Preservative Free 08/10/2013,09/02,09/07/2009 Influenza, Unspecified 09/07/2009 MCV4 (Menactra)(Discontinued) 06/30/2008 MMR 01/11/1992 OPV 05/14/1995,10/08/1992,1990 ,1990 PPD Test 06/12/2020 Family History Medical History Relation Name Comments No Known Problems Brother No Known Problems Daughter Jaron No Known Problems Father Diabetes mellitus type II Maternal Grandfather No Known Problems Maternal Grandmother Atrial fibrillation Mother s/p surg kirstin No Known Problems Sister Relation Name Status Comments Brother Alive Daughter Jaron Alive Father Alive adopted Maternal Grandfather Alive Maternal Grandmother Alive Mother Alive Sister Alive Social History Tobacco Use Types Packs/Day Years [...] 06/12/2020 How often do you attend chur or caodaism services? More than 4 times per year 06/12/2020 Do you belong to any clubs o r organizations such as bahai groups, unions, [email or web address] or athletic groups, or school groups? Patient [...] Answer Date Recorded PHQ-2 Score 0 06/12/2020 [facility]ational [facility] Questionnaire Answer Date Recorded [...] Date Recorded Dental: Regular Dentist Unknown 06/15/20 Education Answer Date Recorded What is the [...] 06/12/2020 8:09 AM CDT Plan of Treatment Health Maintenance Due Date Last Done Comments HIV Screening 1990 Hepatitis C Screening 1990 Hepatitis B Vaccines (2 of 3 - 3-dose series) 05/11/2003 04/13/2003, 04/13/2003 COVID-19 Vaccine ( season) 2023 08/29/2021, 02/01/2021, 01/04/2021 Influenza Vaccine (#1) 2023 9, 01/06/2019, 08/10/2013, Additional history exists Cervical Cancer Screening 10/12/2023 10/12/2020 Depression Screening (Annual PHQ-2) 11/02/2023 DTaP,Tdap,and Td Vaccines (9 - Td or Tdap) 03/18/2033 03/18/2023, 04/15/2021, 03/24/2019, Additional history exists HPV Vaccines Completed 03/30/2009, 11/02, 06/30/2008 Pneumococcal vaccine (0-64 years) Aged Out No longer eligible based on patient's age to complete this topic Procedures Procedure Name Priority Date/Time Associated Diagnosis [...] absent. Influenza B, PCR Undetected Undetected 01/18/20 24 7:10 PM CDT [facility] Comment:Influenza B viral RN A absent. Respiratory Syncytial Virus, PCR Undetected Undetected 01/18/2024 7:10 PM CDT [facility] Comment:RSV RNA absent. SARS-Coronavirus -2, PCR Undetected Undetected 01/18/2024 7:10 PM CDT [facility] Comment: SARS-CoV-2 RNA absent. ?? ----ADDITIONAL INFORMATION---- This RT-PCR test using the Xpert Xpress SARS-CoV-2/Flu/RSV assay ([employer] performed on the [employer] DX systems has received Emergency Use Authorization (EUA) by the U.S. Food and Drug Administration. Performance characteristics were verified by [facility] in a manner consistent with CLIA requirements. Fact sheets for this Emergency Use Authorization (EUA) assay can be found at the following links: For Healthcare Providers: https://www.fda.gov/media/534201/download For Patients: https://www.fda.gov/media/330176/download Specimen Source Swab, Nasopharynx 01/18/2024 6:29 PM CDT [facility] Swab (Nasopharynx) 01/18/2024 6:17 PM CDT 01/18/2024 6:29 PM CDT Shannon Sierra C.N.P., M.S.N., R.N. LAB MICROBIOLOGY - GENERAL ORDERABLES Performing Organization Address City/[facility]/ZIP Co de Phone Number [address] [facility] [place] [address] * Group A Streptococcus PCR, Throat (01/18/2024 6:17 PM CDT) Group A Streptococcus PCR, Throat Negative Negative 01/18/2024 7:01 PM CDT [facility] Swab (Throat) 01/18/2024 6:1 7 PM CDT 01/18/2024 6:28 PM CDT Nyasia Rico C.N.P., M.S.N., R.N. [place] B MICROBIOLOGY - GENERAL ORDERABLES [facility] [address] [facility] [place] [address] from Last 3 Months Care Teams Loom Blower Relationship Specialty Start Date End Date Elsewhere, Pcp PCP - General Internal Medicine 06/25/23
--- OUTSIDE RECORDS SUMMARY | 2024-02-09 18:34 | XMS_ITS | Clinical Summary ---
Author Name Unknown Organization [facility] Address [place], [place] [address] Care Team Providers Care Campus Receptionist Name Role Phone Lila Pritchett Primary Care Provider [phone] Allergies Active Allergy Reactions Criticality Noted Date Comments Adhesive Tape-Silicones Rash 04/26/2019 Rash with bandaid adhesives Banana GI Upset Medium 01/09/2012 Medications Medication Sig Dispensed Refills Start Date End Date Status sennosides (SENNA) 8.6 mg tabletIndications: Constipation, unspecified constipation type Take 2 tablets by mouth 2 times daily. 120 tablet 11 02/25/2018 Active fluticasone (50 mcg per actuation) nasal solution (FLONASE)Indicatio ns:Allergic rhinitis, unspecified seasonality, unspecified trigger Inhale 2 Sprays into both nostrils once daily. 1 Bottle 03/02/2018 Active polyethylene glycoL (MIRALAX) 17 gram/dose powderIndications: constipation Take 1 scoop by mouth once daily. Indications: constipation Active vit,calc76/iron/fo lic (PNV 29-1 ORAL) Take 1 Tab by mouth once daily. Active magnesium 250 mg tab Take 250 mg by mouth once daily. Active valACYclovir (VALTREX) 500 mg tabletIndications: genital herpes simplex Take 1,000 mg by mouth 2 times daily. Indications: genital herpes Active acetaminophen (TYLENOL) 325 mg tablet Take 2 tablets by mouth every 4 hours if needed (For mild pain.). Max acetaminophen dose: 4000mg in 24 hrs. 0 04/20/2019 Active prochlorperazine (COMPAZINE) 10 mg tabletIndications: Non-intractable vomiting with nausea, unspecified vomiting type Take 1 Tablet (10 mg) by mouth every 6 hours if needed for Nausea/Vomiting. 30 Tablet 02/13/2021 Active Active Problems Problem Noted Date Diagnosed Date [facility] Supervision of high-risk 9 Overview: [facility] TESTING ONLY NEXT VISIT ALERTS: PLANS & FUTURE APPOINTMENTS: TESTING PLAN: Weekly - Testing: Through 05/12/19 GROWTH PLAN: Recheck growth in 3 weeks - Growth: Next 05/12/19 DELIVERY PLAN: Delivery at 39 weeks unless indicated earlier - Scheduled delivery: - Preferred delivery location: [facility] PRIMARY DIAGNOSIS: 28 y.o. Estimated Date of Delivery: 05/31/19 : IUGR 9% Maternal: 3rd trimester bleed-hospitalized 04/18-04/20 Anxiety HSV-only breakout in 2015 H/o Migraines Chronic constipation Admitted 04/18-04/20 for bleeding and R/O SROM (negative amnisure) LAST GROWTH: 04/19/19 34w0d EFW 1941 grams, percentile: 9th ECHO: REFERRING PHYSICIAN/PHONE/LAST UPDATE: Dr Raine Wright [phone] Primary MD approves scheduling of recommended ultrasounds/testing: Not specified SPECIALISTS/CONSULTS: Include: Specialty MD Clinic Name Phone# [place] GENETICS: NIPT negative CARE COORDINATION: PERTINENT LABS: A Positive/antibody negative 04/19/19: Amnisure: negative PERTINENT MEDS: Betamethasone 04/18/19 and 04/19/19 Valtrex Miralax PLAN OF CARE: per 04/26/19 -Continue surveillance with weekly biophysical profiles -Dopplers every week. ?? Vaginal spotting in , third trimester 0 04/19/2019 History of herpes genitalis 04/19/2019 Poor growth affecting management of mother in third trimester 04/19/2019 Overview: 04/19/19: [place]ed [place] EFW = 9th%ile; LIZBETH = 10 Estimated Date of Delivery Comme nts Yes 06/03/2021 Resolved Problems Problem Noted Date Diagnosed Date Resolved Date PROM (premature rupture of membranes) 04/18/2019 04/19/2019 Traumatic hematoma of left foot 06/22/2016 04/18/2019 Social History Tobacco Use Types Packs/Day Years Used Date Smoking Tobacco: Never Smokeless Tobacco: Never Tobacco Cessation:Counseling Given: Yes Alcohol Use Standard Drinks/Week Comments Not Asked 0 (1 standard drink = 0.6 oz pur e alcohol) Estimated Date of Delivery Comme nts Yes 06/03/2021 Sex and Gender Information Value Date Recorded Sex Assigned at Not on file Gender Identity Not on file Sexual Orientation Not on file Obstetrics History Para Term AB IAB SAB Ectopic Multiple Livin g Live Births 2 Date Outcome GA Total Labor Labor/2nd/3rd Weight Sex Delivery Anes PTL Layne A1 A5 Name Cl in Current Last Filed Vital Signs Vital Sign Reading Time Taken Comments Blood Pressure 108/65 02/13/2021 4:07 AM CDT Pulse 96 02/13/2021 5:45 AM CDT Temperature 36.4 ??C (97.6 ??F) 02/13/2021 4:07 AM CD T Respiratory Rate 14 02/13/2021 4:07 AM CDT Oxygen Saturation 98% 02/13/2021 5:45 AM CDT Inhaled Oxygen Concentration - - Weight 58.5 kg (129 lb) 02/13/2021 4:07 AM CDT Height 162.6 cm (5' 4) 02/13/2021 4:07 AM CDT Body Mass Index 22.14 02/13/2021 4:07 AM CDT Plan of Treatment Health Maintenance Due Date Last Done Comments Tdap 2001 Depression screening for age 12+ 2002 HIV for age 15-65 2005 Hepatitis C screening for ag e 18-79 2008 Tetanus booster 2010 BMI (ht and wt on same day) for age 18+ 06/22/2017 06/22/2016 COVID-19 vaccine series (2022- season) 2023 Pap test for age 21-65 10/12/2023 0, 10/12/2020, 04/16/2017 Influenza for age 9-49 07/03/2024 Pneumococcal series for age 6-64 Aged Out No longer eligible b ased on patient's age to complete this topic Procedures Procedure Name Priority Date/Time Associated Diagnosis Comments COSMETOLOGY PROFESSOR THIN PREP PAP SCREEN IMAGED Routine 10/12/2020 2:00 PM WINE BLENDER from Last 3 Months or Most Recently Relevant to Health Maintenance Results * COSMETOLOGY PROFESSOR THIN PREP PAP SCREEN IMAGED (10/12/2020 2:00 PM WINE BLENDER) Case Report Gynecologic Cytology Report ? Case: [id number] ? Authorizing Provider: ??Niecy Reynoso PA-C ?Collected: ? 10/12/2020 1400 ? Ordering Location: ? [facility] ?Received: ?10/15/2020 1837 ? First Screen: ?Rina, Ry ? Rescreen: ?Eva Rodriguez ? Specimen: ?COSMETOLOGY PROFESSOR ThinPrep Vial Screening ? 10/30/2020 9:27 AM WINE BLENDER [employer] [facility] ENTRAL LABORATORY INTERPRETATION/ RESULT NEGATIVE FOR INTRAEPITHELIAL LESION OR MALIGNANCY (NIL) (none) 10/30/2020 9:27 AM [facility]INE BL[facility] [employer] LABORAT[facility] ENTRAL LABORATORY IMEN ADEQUACY Satisfactory for evaluation No endocervical component seen in a patient 10/30/2020 9:27 AM WINE BLENDER [employer] [facility] LABORAT[facility] HPV REQUEST HPV and PAP 10/30/2020 9:27 AM WINE BLENDER [facility] ENTRAL LABORATORY Date of LMP 08/27/2020 10/30/2020 9:27 AM WINE BLENDER [facility] [employer] [facility] ENTRAL LABORATORY Last Pap Date 10/30/2020 9:27 AM WINE BLENDER [facility] [employer] [facility] Comment:2017 Last Pap Result NIL 0 9:27 AM WINE BLENDER [facility] [employer] [facility] Menstrual Status 10/30/2020 9:27 AM [facility] Additional Information 10/30/2020 9:27 AM [facility] [employer] [facility] Comment: [facility] - [address], [place] [address] Automated Review Successful 10/30/2020 9:27 AM [facility] [employer] [facility] Comment:Specimen processed s uccessfully by automated tapper hand device, ThinPrep Imaging System, [employer] ANCILLARY TESTING COSMETOLOGY PROFESSOR HPV Ordered, Please see separate report 10/30/2020 9:27 AM [facility] Note The pap test is a screening technique, not a diagnostic procedure. It is used primarily to screen for squamous cancers and precursor lesions. Published studies have shown that it is subject to both false negative and false positive results. The pap test should not be used as the sole means to diagnose or exclude pre-malignant and malignant lesions. 10/30/2020 9:27 AM [facility] Other 10/12/2020 2:00 PM WINE BLENDER 10/15/2020 6:37 PM WINE BLENDER January Edgardo GONZALEZ PATHOLOGY/CYTOLOGY [facility] [address] [place] [address], [place] from Last 3 Months or Most Recently Relevant to Health Maintenance Advance Directives * Full Code (Latest Code Status on File) Date Activated Date Inactivated Comments 04/18/2019 2:01 PM 04/20/2019 2:26 PM Question Answer Comments Code Status Discussion: Discussed Care Teams Campus Receptionist Relationship Specialty Start Date End Date Lila Pritchett [address] [place] [phone] PCP - General Family Practice 01/09/21
--- OUTSIDE RECORDS SUMMARY | 2024-02-09 18:35 | XMS_ITS | Encounter Summary ---
Author Name Unknown Organization [facility] Address [address] [place] [address] Care Team Providers Care Procurement Analyst Name Role Phone Elsewhere, Pcp Primary Care Provider Unavailabl e Reason for Visit * Reason Comments Sore Throat Last week. Encounter Details Date Type Department Care Team (Late st Contact Info) Description 01/18/2024 6:10 PM CDT - 01/18/2024 7:33 PM CDT Emergency [facility] [address] [place] [address] Shannon Sierra C.NSaroj., M.S.N., R.N. [address] [facility] [place] [address] Infection Upper Respiratory Viral (Primary Dx) Discharge Disposition: Home or Self Care Social History Tobacco Use Types Packs/Day Years [...] often do you attend chur ch or caodaism services? More than 4 times per year 06/12/2020 Do you belong to any clubs o r organizations such as temple groups, unions, fraternal or athletic groups, or [...] Answer Date Recorded PHQ-2 Score 0 06/12/2020 [facility] Answer Date Recorded [...] on file Sexual Orientation Not on file documented as of this encounter Last Filed Vital Signs Vital Sign Reading [...] 14.9 oz) 01/18/2024 6:08 PM CDT Height - - Body Mass Index 20.23 06/12/2020 8:09 AM CDT documented in this encounter Discharge Instructions * Discharge Instructions* Shannon Sierra, C.N.P., M.S.N., R.N. - 01/18/2024 7:09 PM CDT Negative strep test. COVID, flu, RSV negative. Continue supportive measures such as Tylenol or ibuprofen as needed. Fluids, diet as tolerated. Maycontinue with throat lozenges as needed. Return to ER or urgent care for worsening symptoms. * Attachments The following attachments cannot be sent through Care Everywhere. * Sore Throat [id number] (Bhutanese) documented in this encounter Medications at Time of Discharge Medication Sig Dispensed Refills Start Date End Date acetaminophen (TYLENOL) 325 mg tablet Take 650 mg by mouth. 0 04/20/2019 valACYclovir (VALTREX) 1000 mg tablet 0 11/14/2023 25/iron fum/folic/dha (-1 ORAL) Take 1 tablet by mouth. 0 sennosides (SENOKOT) 8.6 mg tablet Take 2 tablets by mouth 2 (two) times a day. 0 02/25/2018 valACYclovir (VALTREX) 500 mg tablet Take 1,000 mg by mouth. 0 documented as of this encounter Progress Notes * Shannon Sierra C.N.P., M.S.N., R.N. - 01/18/2024 7:33 PM CDT SUBJECTIVE CHIEF COMPLAINT/REASON FOR VISIT Sore Throat (Last week.) SUBJECTIVE HISTORY OF PRESENT ILLNESS Colleen is a 33-year-old female who presents to urgent care for evaluation of throat pain. This has been present for 1 week. Her voice has been hoarse. She has had some nasal congestion and a slight cough. She had body aches last week. She has been fatigued. No fever. No vomiting or diarrhea. She isusing Tylenol and Advil. Her daughter is being evaluated with her as well. 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 She has been exposed to influenza and strep. PAST MEDICAL HISTORY Past Medical History: Diagnosis Date Herpes Genitalis 04/19/2019 CURRENT MEDICATIONS No current facility-administered medications for this encounter. Current Outpatient Medications Medication Sig Dispense Refill acetaminophen (TYLENOL) 325 mg tablet Take 650 mg by mouth. valACYclovir (VALTREX) 1000 mg tablet 25/iron fum/folic/dha (-1 ORAL) Take 1 tablet by mouth. sennosides (SENOKOT) 8.6 mg tablet Take 2 tablets by mouth 2 (two) times a day. valACYclovir (VALTREX) 500 mg tablet Take 1,000 mg by mouth. ALLERGIES/CONTRAINDICATIONS Allergies Allergen Reactions Banana GI intolerance Adhesive Rash Adhesive Tape-Silicones Rash Rash with bandaid adhesives Avocado GI intolerance Tree Nut GI intolerance OBJECTIVE Initial Vitals Temperature 01/18/24 1809 36.7 ??C Pulse Rate 01/18/24 1809 (!) 54 Heart Rate -- Resp Rate 01/18/24 1809 16 Blood Pressure 01/18/24 180 109/67 SpO2 01/18/24 180 98 % Pain Score 01/18/24 1810 4 PHYSICAL EXAMINATION GENERAL: She is sitting on the chair. Appears in no acute distress. Answers questions appropriately. HEENT: Head is normocephalic, nontraumatic. Eyes without injection or discharge. Mouth is moist. Tonsils 1+ bilaterally. Uvula rises midline. Ear canals are clear bilaterally. Tympanic membranes without erythema, bulging or retraction. Neck is soft and nontender. No cervical lymphadenopathy. CARDIAC: Regular rate and rhythm. LUNGS: Clear to auscultation bilaterally. URGENT CARE COURSE Final Diagnoses: as of 01/18/241935 Infection Upper Respiratory Viral Recent Results (from the past 24 hour(s)) Group A Streptococcus PCR, Throat Collection Time: 01/18/24 6:17 PM Specimen: Throat; Swab Result Value Group A Streptococcus PCR, Throat Negative SARS CoV-2, Influenza A/B, RSV, PCR Symptomatic Collection Time: 01/18/24 6:17 PM Specimen: Nasopharynx; Swab Result Value Influenza A, PCR Undetected Influenza B, PCR Undetected Respiratory Syncytial Virus, PCR Undetected [id number], PCR Undetected Specimen Source Swab, Nasopharynx ASSESSMENT / PLAN Negative strep test. COVID, flu, RSV negative. Continue supportive measures such as Tylenol or ibuprofen as needed. Fluids, diet as tolerated. Maycontinue with throat lozenges as needed. Return to ER or urgent care for worsening symptoms. Patient/caregiver is agreeable to this plan. No further questions or concerns at this time. Discharged in stable condition. Shannon Sierra C.N.P., M.S.N., R.N. 01/18/241936 documented in this encounter Plan of Treatment Not on file documented as of this encounter Procedures Procedure Name Priority Date/Time Associated Diagnosis Comments SARS COV-2,INFLUENZA A/B,RSV,PCR, V STAT 01/18/2024 6:17 PM CDT GROUP A STREP PCR, THROAT STAT 01/18/2024 6:17 PM CDT documented in this encounter Results * SARS CoV-2, Influenza A/B, RSV, PCR Symptomatic (01/18/2024 6:17 PM CDT) Influenza A, PCR Undetected Undetected 01/18/20 7:10 PM CDT MNM[facility] Comment:Influenza A viral [...] test using the Xpert Xpress SARS-CoV-2/Flu/RSV assay ([employer] performed on the [employer] DX systems has received Emergency Use Authorization (EUA) by the U.S. Food and Drug Administration. Performance characteristics were verified by [facility] in a manner consistent with CLIA requirements. Fact sheets for this Emergency Use Authorization (EUA) assay can be found at the following links: For Healthcare Providers: https://www.fda.gov/media/703043/download For Patients: https://www.fda.gov/media/205967/download Specimen Source Swab, Nasopharynx 01/18/2024 6:29 PM CDT [facility] Swab (Nasopharynx) 01/18/2024 6:17 PM CDT 01/18/2024 6:29 PM CDT Shannon Sierra C.N.P., M.S.N., R.N. LAB MICROBIOLOGY - GENERAL ORDERABLES [facility] [address] [place] [address] [place] [address] * Group A Streptococcus PCR, Throat (01/18/2024 6:17 PM CDT) Group A Streptococcus PCR, Throat Negative Negative 01/18/2024 7:01 PM CDT [facility] Swab (Throat) 01/18/2024 6:1 7 PM CDT 01/18/2024 6:28 PM CDT Nyasia Rico C.N.P., VivianaN., R.N. LA B MICROBIOLOGY - GENERAL ORDERABLES Performing Organization Address City/[facility]/ZIP Co de Phone Number [facility] [address] [place] [address] [place] [address] documented in this encounter Visit Diagnoses Diagnosis Infection Upper Respiratory Viral- Primary documented in this encounter Additional Health Concerns Infection Onset Date Last Indicated Resolved Time COVID19 Pending 01/18/2024 01/18/2024 01/18/2024 7 :10 PM CDT Assessment Noted Time PHQ-9 Depression Total Score: 0 06/12/20 20 8:03 AM CDT documented as of this encounter Care Teams Procurement Analyst Relationship Specialty Start Date End Date Elsewhere, Pcp PCP - General Internal Medicine 06/25/23 documented as of this encounter
[2024-02-09 21:19] LABS: Bacterial Vaginosis* Negative (Negative); Candida glab/krus NOT DETECTED (No Detected); Candida species NOT DETECTED (No Detected); Trichomonas vaginalis NOT DETECTED (No Detected)
== END 2024-02-09 18:32 | disposition home or self-care (01) ==
PROVIDERS: PCP Registered Nurse; Visit Provider Registered Nurse
DX: L29.2 Pruritus vulvae (principal)
CPT/HCPCS: 81513; 87070; 87102; 87481; 87661